=== PATIENT | male | born 1945 | race Caucasian/White ===

== ENCOUNTER 2020-05-16 08:29 | Outpatient (CLI) | payer MEDICARE, SELFPAY | END 2020-05-16 08:30 | disposition home or self-care (01) | LOC: ANHCOVIDVC 08:29 | PROVIDERS: PCP Internal Medicine | DX: Z23 Encounter for immunization (principal) | CPT/HCPCS: 0001A; 91300 ==

== ENCOUNTER 2020-06-06 08:32 | Outpatient (CLI) | payer MEDICARE, SELFPAY | END 2020-06-06 08:33 | disposition home or self-care (01) | LOC: ANHCOVIDVC 08:32 | PROVIDERS: PCP Internal Medicine | DX: Z23 Encounter for immunization (principal) | CPT/HCPCS: 0002A; 91300 ==

== ENCOUNTER 2020-07-19 14:27 | Emergency (ER) | payer MEDICARE, SELFPAY ==
--- NOTE | ~2020-07-19 | CT_ITS ---
EXAMINATION: CT lumbar spine wo [facility] EXAM DATE: 07/19/2020 16:52 INDICATION: Back pain for 3 days. No known recent injury. TECHNIQUE: Spiral CT of the lumbar spine was performed without contrast. Axial, coronal and sagittal images lumbar spine were reviewed. The dose-length product (DLP) for this examination was 1349.13 m Gy-cm. The exposure was tailored according to patient size (auto mA exposure control), and iterativ e reconstruction (ASIR) was used as additional dose reduction technique. There is no prior study for comparison. FINDINGS: There are no bony erosions identified. L4 and L5 laminectomies. Facets are fused L3-L5. The re is anterior and interbody fusion L5-S1. The vertebral bodies are aligned in the AP dimension. IVC filter infrarenal position. There are no acute fractures identified. Level by level evaluation: T12-L1: There is a minimal diffuse disc bulge. Facet arthropathy: Mild to moderate. Neural foraminal stenosis: Mild left. Central canal stenosis: Mild. L1-L2: There is mild to moderate disc osteophyte complex. Facet arthropathy: Moderate. Neural foraminal stenosis: Moderate bilateral. Central canal stenosis: Moderate to severe. L2-L3: There is a mild to moderate diffuse disc bulge. Facet arthropathy: Moderate to severe. Neural foraminal stenosis: Mild to moderate bilateral. Central canal stenosis: Moderate to severe. L3-L4: There is a mild to moderate diffuse disc bulge. Facet arthropathy: Fused. Neural foraminal stenosis: Mild bilateral. Central canal stenosis: Laminotomies, posterior decompression. L4-L5: There is a mild to moderate diffuse disc bulge. Facet arthropathy: Fused. Neural foraminal stenosis: Moderate bilateral. Central canal stenosis: Posterior decompression. L5-S1: There is moderate disc osteophyte complex. Facet arthropathy: Severe. Neural foraminal stenosis: Severe bilateral. Central canal stenosis: Mild to moderate, but posterior decompression. IMPRESSION: 1. L5-S1 fusion, severe bilateral neural foraminal stenosis. 2. Other surgical changes, and significant central canal stenosis at L1-2 and L2-3. 3. No acute findings. Reviewed, dictated and finalized at location A.
[2020-07-19 14:45] VITALS: BP 160/89; PULSE 65; RESP 16; TEMP 36; O2SAT 99
[2020-07-19 14:56] VITALS: BP 160/89; PULSE 65; RESP 18; TEMP 36.8; O2SAT 99
[2020-07-19] MEDS: HYDROcodone/acetaminophen (*CRX) 7.5-325 MG TABLET 1 TAB PO (15:40)
[2020-07-19] MEDS: LIDOCAINE 5% PATCH 1 PATCH TRANSDERM (15:47)
[2020-07-19 15:51] LABS: Add Urine Microscopic? YES; Appearance Urine Clear (Clear); Bilirubin Urine Negative (Negative); Blood Urine Negative (Negative); Color Urine Straw (Yellow); Glucose Urine UA 3+ mg/dL (Negative); Ketones Urine Negative (Negative); Leukocyte Esterase Ur Negative LEU/UL (Negative); Nitrate Urine Negative (Negative); Protein Urine Negative (Negative); RBC Urine 0-2 /hpf (0-2); Specific Grav Ur 1.018 (1.001-1.035); Urobilinogen Urine Negative mg/dL (<2.0); WBC Urine 0-3 /hpf
[2020-07-19] MEDS: diazePAM (*CRX) 5 MG TABLET PO (16:00)
--- NOTE | 2020-07-19 16:38 | ED.GENADULT ---
HPI - General Adult General Chief complaint: Back Pain/Injury Stated complaint: back pain Time Seen by Provider: 07/19/20 15:07 Source: patient, family, RN notes reviewed and old records reviewed Mode of arrival: ambulatory Limitations: no limitations History of Present Illness HPI narrative: Patient is a 75-year-old male who presents to emergency department for evaluation of low back pain across the lumbar region and left paraspinal region pain is constant and worse with activity or movement has been taking medications prescribed by primary care with minimal improvement patient with longstanding history of chronic back pain is scheduled to see neurosurgery in the near future. Patient denies injury or trauma illness or other complaints presents in no distress does not appear uncomfortable patient lives at home with his Related Data Home Medications Medication Instructions Recorded Confirmed aspirin 81 mg tablet,delayed 81 mg PO DAILY 01/19/19 07/13/20 release cyanocobalamin (vitamin B-12) 250 1,000 mcg PO DAILY 01/19/19 07/13/20 mcg tablet magnesium 250 mg tablet 250 mg PO DAILY tablet 01/19/19 07/13/20 acetaminophen 500 mg capsule 500 mg PO BID PRN cap 07/13/20 07/13/20 alpha lipoic acid 600 mg capsule 600 mg PO DAILY 07/13/20 07/13/20 Allergies Allergy/AdvReac Type Severity Reaction Status Date / Time adhesive tape Allergy Intermediate SKIN Verified 02/07/20 11:16 IRRITATION amoxicillin Allergy Intermediate Hives Verified 02/07/20 11:16 clavulanic acid Allergy Intermediate Hives / Verified 02/07/20 11:16 Red Face Penicillins Allergy Intermediate Hives Verified 02/07/20 11:16 morphine AdvReac Intermediate DIDN'T Verified 02/07/20 11:16 FEEL WELL Review of Systems Review of Systems: All systems reviewed & are unremarkable except as noted in HPI and below PMFSH Past Medical History Medical History Back pain Cholecystectomy planned Coronary arteriosclerosis in [place] artery Diabetes mellitus DVT (deep venous thrombosis) Hypertension Measles Mumps Peripheral neuropathy Vitamin D deficiency Surgical History Surgical History History of heart artery stent S/P cervical spinal fusion Family History Family History (Updated 08/29/17 @ 11:07 by DOCTOR UNKNOWN) Father Family history of congestive heart failure Other Diabetes mellitus Family history of elevated blood lipids Hypertension Social History Social History Smoking status: Heavy tobacco smoker Alcohol intake: never Exam Narrative: Exam Narrative: GENERAL: Well-appearing, obese, and in no acute distress. HEAD: Normocephalic, atraumatic. EYES: PERRLA and EOMI. ENT: Nares clear, no rhinorrhea or epistaxis. Mucous membranes moist. CHEST: Clear to auscultation. No respiratory distress. No wheezes rales or rhonchi HEART: Regular rate and rhythm. No murmur heard. EXTREMITIES: Normal range of motion. No edema. Tenderness across the lower lumbar region no rashes or deformities noted SKIN: Warm, dry, no rash. NEURO: No focal deficits. Alert and oriented x3. Normal speech and gait. Cranial nerves II through XII grossly intact PSYCH: Normal mood and affect. Course Course Emergency Course: Patient evaluated in the emergency department for low back pain which sounds chronic in nature will be evaluated by primary care and neurosurgery for this. Patient at this time was medicated in the emergency department will be sent home with medications for his pain patient agrees with this treatment plan he does not appear uncomfortable or distressed Vital Signs Vital signs: Vital Signs Temperature 96.8 F L 07/19/20 14:45 Pulse Rate 65 07/19/20 14:45 Respiratory Rate 16 07/19/20 14:45 Blood Pressure 160/89 H 07/19/20 14:45 Pulse Oximetry 99 07/19
[2020-07-19] MEDS: KETOROLAC (*BKC) 60 MG/2 ML VIAL 30 MG IM (18:07)
== END 2020-07-19 18:35 | disposition home or self-care (01) ==
PROVIDERS: Emergency Medicine Emergency Medical Services; Emergency Provider Emergency Medicine; PCP Internal Medicine
DX: M54.5 Low back pain (principal); I25.10 Atherosclerotic heart disease of native coronary artery without angina pectoris; E11.9 Type 2 diabetes mellitus without complications; Z79.82 Long term (current) use of aspirin
CPT/HCPCS: 72131; 81001; 96372; 99284; A9270; J1885

== ENCOUNTER 2021-04-14 12:18 | Outpatient (CLI) | payer MEDICARE, SELFPAY ==
--- NOTE | ~2021-04-14 | MR_ITS ---
EXAMINATION: MR lumbar spine wo [facility] EXAM DATE: 04/14/2021 13:21 INDICATION: M54.5 - Low back pain . TECHNIQUE: Multi-sequential, multiplanar MR images of the lumbar spine were obtained without contrast . Axial T2, axial T2 MERGE sequence. Sagittal T1, T2, T2 fat saturation images also obtained. Ther e is no prior study for comparison. FINDINGS: Minimal acute or subacute compressions at the superior endplates of L1 and L2, some bone m arrow edema. Mild chronic compression fracture of T12. There is L5-S1 anterior, interbody fusion. Mil d to moderate loss of the L3-4 and L4-5 disc height. L4 and L5 laminectomies. Laminotomies L2 and L3. The conus medullaris terminates at the L1-2 level and has normal signal intensity and morphology. T here is mild lumbar levoscoliosis. Paraspinal soft tissue is unremarkable. 2 cm left renal cyst. Level by level evaluation: T12-L1: There is a minimal diffuse disc bulge. Facet arthropathy: Mild to moderate bilateral. Neural foraminal stenosis: No stenosis. Central canal stenosis: No stenosis. L1-L2: There is a mild to moderate diffuse disc bulge. Facet arthropathy: Moderate. Neural foraminal stenosis: Moderate left, mild to moderate right. Central canal stenosis: Mild to moderate. L2-L3: There is a moderate diffuse disc bulge. Facet arthropathy: Moderate, partially fused. Neural foraminal stenosis: Mild to moderate right, mild left. Central canal stenosis: Mild. Probable prior left hemilaminotomy. L3-L4: There is a mild to moderate diffuse disc bulge, partially fused Facet arthropathy: Fused. Neural foraminal stenosis: Mild to moderate bilateral. Central canal stenosis: No stenosis. Laminotomies. L4-L5: Ybip-ty-laxxruge Facet arthropathy: Fused. Neural foraminal stenosis: Moderate bilateral. Central canal stenosis: No stenosis. Laminectomies. L5-S1: This level is fused, but with posterior disc osteophyte complex Facet arthropathy: Moderate to severe. Neural foraminal stenosis: Moderate to severe right bilateral, right greater than left. Central canal stenosis: Mild. Laminectomies.. IMPRESSION: 1. Subacute appearing minimal compression fractures L1 and L2. 2. Surgical changes, with the L5-S1 neural foramen most narrowed on exam. Reviewed, dictated and finalized at location G. 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
== END 2021-04-14 12:19 | disposition home or self-care (01) ==
PROVIDERS: PCP Internal Medicine; Visit Provider Internal Medicine
DX: M48.061 Spinal stenosis, lumbar region without neurogenic claudication (principal); G62.9 Polyneuropathy, unspecified; M54.50 Low back pain, unspecified; Z98.890 Other specified postprocedural states; M48.56XA Collapsed vertebra, not elsewhere classified, lumbar region, initial encounter for fracture
CPT/HCPCS: 72148

== ENCOUNTER 2021-05-22 12:44 | Outpatient (CLI) | payer MEDICARE, SELFPAY ==
--- NOTE | ~2021-05-22 | CT_ITS ---
EXAMINATION: CT lumbar spine wo con DATE: 05/22/2021 13:03 INDICATION: Low back pain. Lumbar stenosis with neurogenic claudication. TECHNIQUE: Computed tomography (CT) of the lumbar spine was performed without intravenous contrast. A utomated exposure control and iterative reconstruction technique were employed. The dose-length produ ct was 1590.15 mGy-cm. COMPARISON: CT lumbar spine 07/19/2020, MRI 04/14/2021 FINDINGS: There is a filter in the inferior vena cava. There is 7 degrees levocurvature of lumbar spi ne. There are changes of anterior fusion procedure at L5-S1 with interbody devices, bridging interbod y bone, and anterior plate and screws. Old pedicle screw tracks are noted from L3 to L5. Vertebral gildardo dy heights are normal. There are bridging endplate osteophytes from L2 to L5. The following disc leve ls are specifically discussed: L1-L2: The disc is bulging. There is severe bilateral facet joint osteoarthritis. There is moderate b ilateral neural foraminal stenosis. There is mild central canal stenosis. There is moderate stenosis of left lateral recess. L2-L3: The disc is bulging. There is severe bilateral facet joint osteoarthritis. There is moderate b ilateral neural foraminal stenosis. There is mild central canal stenosis. L3-L4: The disc is bulging. There is ankylosis of the facet joints with severe hypertrophy. There is moderate right and mild left neural foraminal stenosis. There is mild central canal stenosis with pos terior decompression. L4-L5: The disc is bulging. There is ankylosis of the facet joints with severe hypertrophy. There is moderate bilateral neural foraminal stenosis. There is mild central canal stenosis with posterior dec ompression. L5-S1: There is severe bilateral facet joint osteoarthritis. There is severe bilateral neural foramin al stenosis. There is mild central canal stenosis with posterior decompression. IMPRESSION: 1. Severe lumbar spondylosis, stable from 04/14/2021. 2. Anterior fusion procedure at L5-S1. Posterior fusion from L3 to L5. Reviewed, dictated and finalized at location A.
== END 2021-05-22 12:45 | disposition home or self-care (01) ==
LOC: ANHIMG 12:49
PROVIDERS: PCP Internal Medicine
DX: M54.50 Low back pain, unspecified (principal); M48.062 Spinal stenosis, lumbar region with neurogenic claudication; M47.816 Spondylosis without myelopathy or radiculopathy, lumbar region; Z98.1 Arthrodesis status
CPT/HCPCS: 72131

== ENCOUNTER 2021-07-30 09:33 | Outpatient (CLI) | payer MEDICARE, SELFPAY ==
--- NOTE | ~2021-07-30 | NM_ITS ---
EXAMINATION: NM bone scan limited area DATE: 07/30/2021 13:52 INDICATION: Low back pain TECHNIQUE: 26.9 mCi Tc-99m HDP was administered intravenously. Delayed whole-body scintigrams of the chest, and pelvis were obtained in the anterior and posterior projections along with left and right lateral scintigrams of the abdomen and pelvis. COMPARISON: Lumbar spine CT dated 05/22/2021 FINDINGS: Mild likely degenerative joint centered uptake at the bilateral sternoclavicular and acromioclavicula r joints. Foci of uptake along the right maxilla in typical location for dental disease and close inc reased uptake in the region of the left mastoid sinus/nasal cavity which could be related to sinus di sease. Photopenic defect along the posterior midline of the lower lumbar spine corresponding to the s ite of prior L4 and L5 laminectomies. Mild increased uptake along the anterior margin of the upper stalin mbar spine corresponding to bridging or nearly bridging osteophytes. No more intense bone uptake to s uggest recent fracture or more atypically located bone lesions to suggest metastatic disease. IMPRESSION: 1. No lesion suspicious for either recent fracture or metastatic disease. Reviewed, dictated and finalized at location B.
== END 2021-07-30 09:34 | disposition home or self-care (01) ==
PROVIDERS: PCP Internal Medicine; Visit Provider Internal Medicine
DX: M54.50 Low back pain, unspecified (principal); G89.29 Other chronic pain
CPT/HCPCS: 78300; A9561

== ENCOUNTER 2021-11-17 07:43 | Outpatient (CLI) | payer MEDICARE, SELFPAY ==
--- NOTE | ~2021-11-17 | MR_ITS ---
EXAMINATION: MR thoracic spine wo con DATE: 11/17/2021 08:31 INDICATION: Thoracic back pain. TECHNIQUE: Magnetic resonance imaging (MRI) of the thoracic spine was performed without intravenous c ontrast. COMPARISON: CT lumbar spine 05/23/2021 FINDINGS: There is 3 degrees dextrocurvature of thoracic spine. There is mild chronic anterior wedgin g of T6, T7, T11, and T12 vertebral bodies. There are Schmorl's nodes at multiple levels. There are c hanges of anterior fusion procedure in cervical spine. There is moderately decreased disc height at T 1-T2 and mildly decreased disc height at T2-T3 and T5-T6. There is multilevel facet joint osteoarthri tis, severe at many levels. There is mild neural foraminal stenosis at most levels bilaterally. On th e left, there is moderate neural foraminal stenosis at T2-T3. At T1-T2, the disc is bulging with mild central canal stenosis. At T2-T3, there is a left central extrusion with mild central canal stenosis . At T3-T4, there is a right central protrusion with mild central canal stenosis and ventral indentat ion of the spinal cord. At T4-T5, there is a central extrusion with mild central canal stenosis and v entral indentation of the spinal cord. At T5-T6, there is a right central extrusion with mild central canal stenosis and ventral indentation of the spinal cord. At T9-T10, there is a left central extrus ion with mild central canal canal stenosis. 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 IMPRESSION: 1. Moderate thoracic spondylosis. 2. 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 Reviewed, dictated and finalized at location A.
== END 2021-11-17 07:44 | disposition home or self-care (01) ==
PROVIDERS: PCP Internal Medicine; Visit Provider Nurse Practitioner Family
DX: M54.6 Pain in thoracic spine (principal); M47.814 Spondylosis without myelopathy or radiculopathy, thoracic region; G95.0 Syringomyelia and syringobulbia
CPT/HCPCS: 72146

== ENCOUNTER 2022-01-08 07:58 | Outpatient (CLI) | payer MEDICARE, SELFPAY ==
[2022-01-08 19:45] LABS: Hematocrit 49.9 % (42.0-52.0); Hemoglobin 16.1 g/dL (14.0-18.0); Mean Corpuscular HGB Conc 32.3 g/dl (32-36); Mean Corpuscular Hemoglobin 29.3 pg (26-34); Mean Corpuscular Volume 90.7 fl (80-100); Mean Platelet Volume 9.9 fl (7.4-10.4); Platelet Count Result 159 k/mm3 (150-375); Red Cell Distribution Width 14.2 % (11.5-14.5); White Blood Count 6.6 K/mm3 (4.5-10.0)
[2022-01-08 20:02] LABS: Creatinine Urine 131.3 mg/dL
[2022-01-08 20:07] LABS: MALB Creatinine Ratio 5.1 mg/g (0-30); Microalbumin Urine Random 6.7 mg/L (0-16.7)
[2022-01-08 20:07] LABS: Alanine Aminotransferase 53 U/L (6-50); Albumin Level 4.4 g/dL (3.5-5.1); Alkaline Phosphatase 87 U/L (38-126); Anion Gap 11 mmol/L (8-16); Aspartate Amino Transferase 42 U/L (17-59); Bilirubin,Total 1.5 mg/dL (0.2-1.3); Blood Urea Nitrogen 19 mg/dL (9-20); Calcium 8.7 mg/dL (8.4-10.2); Carbon Dioxide 24 mmol/L (22-30); Chloride 105 mmol/L (98-107); Cholesterol 130 mg/dL (0-200); Estimated Glomerular Filt Rate > 60; Glucose 112 mg/dL (65-110); HDL Direct 36 mg/dL; Potassium 3.9 mmol/L (3.4-5.0); Sodium 140 mmol/L (137-145); Triglycerides 331 mg/dL (<150)
[2022-01-08 20:14] LABS: Hemoglobin A1C 7.1 % (<5.7)
[2022-01-08 20:17] LABS: LDL Cholesterol Direct 48 mg/dL
[2022-01-08 20:37] LABS: Prostate Specific Antigen 0.5 ng/mL (< OR = 4.0)
== END 2022-01-08 07:59 | disposition home or self-care (01) ==
PROVIDERS: PCP Internal Medicine; Visit Provider Internal Medicine
DX: I25.10 Atherosclerotic heart disease of native coronary artery without angina pectoris (principal); E11.9 Type 2 diabetes mellitus without complications; Z12.5 Encounter for screening for malignant neoplasm of prostate
CPT/HCPCS: 36415; 80053; 80061; 82043; 83036; 84153; 85027; G0103

== ENCOUNTER 2022-06-11 09:05 | Outpatient (CLI) | payer MEDICARE, SELFPAY ==
[2022-06-11 19:53] LABS: Hematocrit 50.2 % (42.0-52.0); Hemoglobin 16.5 g/dL (14.0-18.0); Mean Corpuscular HGB Conc 32.9 g/dl (32-36); Mean Corpuscular Hemoglobin 28.8 pg (26-34); Mean Corpuscular Volume 87.8 fl (80-100); Mean Platelet Volume 9.9 fl (7.4-10.4); Platelet Count Result 179 k/mm3 (150-375); Red Blood Count 5.72 M/mm3 (4.6-6.20); Red Cell Distribution Width 13.8 % (11.5-14.5)
[2022-06-11 21:18] LABS: Alanine Aminotransferase 47 U/L (6-50); Albumin Level 4.4 g/dL (3.5-5.1); Alkaline Phosphatase 89 U/L (38-126); Anion Gap 9 mmol/L (8-16); Aspartate Amino Transferase 53 U/L (17-59); Bilirubin,Total 1.8 mg/dL (0.2-1.3); Blood Urea Nitrogen 17 mg/dL (9-20); Calcium 8.6 mg/dL (8.4-10.2); Carbon Dioxide 26 mmol/L (22-30); Chloride 105 mmol/L (98-107); Estimated Glomerular Filt Rate > 60; Glucose 132 mg/dL (65-110); Potassium 4.1 mmol/L (3.4-5.0); Sodium 140 mmol/L (137-145)
[2022-06-11 21:35] LABS: Hemoglobin A1C 7.2 % (<5.7)
== END 2022-06-11 09:06 | disposition home or self-care (01) ==
LOC: ANHGOSHLAB 09:06
PROVIDERS: PCP Internal Medicine; Visit Provider Nurse Practitioner
DX: I25.10 Atherosclerotic heart disease of native coronary artery without angina pectoris (principal); E11.9 Type 2 diabetes mellitus without complications; I10 Essential (primary) hypertension
CPT/HCPCS: 36415; 80053; 83036; 85027

== ENCOUNTER → 2022-09-30 10:02 | Outpatient (CLI) | payer MEDICARE, SELFPAY ==
--- NOTE | ~2022-09-30 | XR_ITS ---
XR knee LT min 4V DATE: 09/30/2022 10:26 INDICATION: Medial pain for 4 days TECHNIQUE: 4 views COMPARISON: None FINDINGS: There is tricompartment osteoarthritis, most prominent at the patellofemoral joint , mildly prominent at the medial and lateral compartments. There is distention of the suprapatellar bursa, consistent with joint effusion. No fracture or dislocation, periosteal reaction or bone destruction is detected. Prominent infrapatellar enthesopathy of patella. No radiopaque intraarticular loose body or chondrocalcinosis. IMPRESSION: Joint effusion Tricompartment osteoarthritis Reviewed, dictated and finalized at location B.
== END ==
PROVIDERS: PCP Internal Medicine; Visit Provider Internal Medicine
DX: M25.562 Pain in left knee (principal); M25.462 Effusion, left knee; M17.12 Unilateral primary osteoarthritis, left knee
CPT/HCPCS: 73564

== ENCOUNTER 2022-12-18 08:46 | Outpatient (CLI) | payer MEDICARE, SELFPAY ==
[2022-12-18 18:24] LABS: Hematocrit 50.4 % (42.0-52.0); Hemoglobin 16.6 g/dL (14.0-18.0); Mean Corpuscular HGB Conc 32.9 g/dl (32-36); Mean Corpuscular Hemoglobin 29.4 pg (26-34); Mean Corpuscular Volume 89.2 fl (80-100); Mean Platelet Volume 10.2 fl (7.4-10.4); Platelet Count Result 149 k/mm3 (150-375); Red Blood Count 5.65 M/mm3 (4.6-6.20); Red Cell Distribution Width 14.6 % (11.5-14.5); White Blood Count 6.9 K/mm3 (4.5-10.0)
[2022-12-18 19:54] LABS: Alanine Aminotransferase 42 U/L (6-50); Albumin Level 4.3 g/dL (3.5-5.1); Alkaline Phosphatase 80 U/L (38-126); Anion Gap 7 mmol/L (8-16); Aspartate Amino Transferase 39 U/L (17-59); Bilirubin,Total 1.8 mg/dL (0.2-1.3); Blood Urea Nitrogen 18 mg/dL (9-20); Calcium 9.2 mg/dL (8.4-10.2); Carbon Dioxide 29 mmol/L (22-30); Chloride 101 mmol/L (98-107); Estimated Glomerular Filt Rate > 60; Glucose 137 mg/dL (65-110); Potassium 4.2 mmol/L (3.4-5.0); Sodium 137 mmol/L (137-145)
[2022-12-18 19:59] LABS: Bilirubin Indirect 1.6 mg/dL (0-1.1); Bilirubin,Total 1.9 mg/dL (0.2-1.3)
[2022-12-18 21:48] LABS: Hemoglobin A1C 7.3 % (<5.7)
[2022-12-21 06:33] LABS: GGT 71 U/L (3-70)
[2022-12-23 00:20] LABS: Apolipoprotein B 70 mg/dL (<90)
== END 2022-12-18 08:47 | disposition home or self-care (01) ==
PROVIDERS: PCP Internal Medicine; Visit Provider Internal Medicine
DX: E11.9 Type 2 diabetes mellitus without complications (principal); I10 Essential (primary) hypertension; I25.10 Atherosclerotic heart disease of native coronary artery without angina pectoris; E80.6 Other disorders of bilirubin metabolism
CPT/HCPCS: 36415; 80053; 82172; 82247; 82248; 82977; 83036; 85027

== ENCOUNTER → 2023-02-03 13:19 | Outpatient (CLI) | payer MEDICARE, SELFPAY ==
--- NOTE | ~2023-02-03 | XR_ITS ---
XR chest 2V 02/03/2023 13:28 Indication: Cough for one month Procedure: 2 view chest Comparison: Comparison to multiple prior studies sequentially, with oldest reviewed study dated 12/09. Findings: Heart size normal. No focal air space disease, pulmonary edema, pleural effusion or suspect ed pneumothorax. Impression: 1: No acute cardiopulmonary disease. Reviewed, dictated and finalized at location B. CH MUSICIAN Impression: 1: No acute cardiopulmonary disease.
== END ==
PROVIDERS: PCP Internal Medicine; Visit Provider Internal Medicine
DX: R05.9 Cough, unspecified (principal)
CPT/HCPCS: 71046

== ENCOUNTER 2023-03-06 00:10 | Day surgery (SDC) | payer MEDICARE, SELFPAY ==
[2023-02-12 15:19] VITALS: BMI 32.4
--- NOTE | 2023-03-04 12:12 | SUR.PREOP ---
Patient called regarding upcoming procedure. Reviewed preop instructions, appointment times, and procedure prep.
[2023-03-06 07:00] VITALS: BP 156/84; PULSE 66; RESP 18; TEMP 36.4; O2SAT 97; BMI 31.8
[2023-03-06 07:11] LABS: Glucose Point of Care 126 mg/dl (65-105)
[2023-03-06] MEDS: LACTATED RINGERS 1,000 ML 150 ML IV CONT (07:20)
--- NOTE | 2023-03-06 07:26 | PM.HPGS ---
History of Present Illness History of Present Illness Consent: Risks, benefits, and alternatives have been discussed and questions answered. Patient agrees to proceed with procedure. Chief complaint: hx of colon polyps Narrative: Abdullahi Prado is a 77 year old male Presents for screening colonoscopy. Patient has a history of large colon polyp in the past. Patient reports that his current weight appetite and bowel movements are normal. Patient denies abdominal pain. He has had no bleeding. Family history noncontributory. Review of Systems Review of Systems: Review of systems noncontributory. 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 Lumbar compression fracture Measles Mumps Neural foraminal stenosis of lumbar spine Osteoarthritis of left knee Peripheral neuropathy Purposeful movement with painful stimulus Vitamin D deficiency Surgical History Surgical History History of heart artery stent Previous back surgery X6 S/P cervical spinal fusion Family History Family History Father Family history of congestive heart failure Other Diabetes mellitus Family history of elevated blood lipids Hypertension Social History Social History Smoking packs per day: 1 Smoking cigarettes per day: 20.0 Years smoked: 50 Smoking pack-years: 50.00 Smoking status: Current every day smoker Tobacco type: cigarettes Alcohol intake: never Substance use type: does not use Lack of Transportation: No Lack of Food: Never True Current Housing: I Have Housing Concerned About Future Housing: No Difficulty Paying Gas/Electric Bills: No Difficulty Paying for Meds: No Currently Unemployed: No Education: High School Diploma/GED Difficulty w/ Childcare or Family Care: No Living arrangements: with family Spiritual care concerns: No Meds Home Medications and Allergies Home Medications Medication Instructions Recorded Confirmed Type aspirin 81 mg tablet,delayed 81 mg PO DAILY 01/19/19 02/12/23 History release (Adult Aspirin Regimen) cyanocobalamin (vitamin B-12) 250 1,000 mcg PO DAILY 01/19/19 02/12/23 History mcg tablet magnesium 250 mg tablet 250 mg PO DAILY 01/19/19 02/12/23 History gabapentin 300 mg capsule 300 mg PO HS 01/15/21 02/12/23 History empagliflozin 25 mg tablet 12.5 mg PO DAILY 01/14/22 02/12/23 History metformin 500 mg tablet 500 mg PO BID #180 tabs 09/04/22 02/12/23 Rx albuterol sulfate 90 mcg/actuation 2 inh inhalation Q6H PRN shortness 02/03/23 02/12/23 Rx aerosol inhaler of breath or wheezing/cough #6.7 grams losartan 25 mg tablet 25 mg PO DAILY #30 tabs 02/03/23 03/06/23 Rx atorvastatin 10 mg tablet 10 mg PO DAILY 02/12/23 02/12/23 History carvedilol 12.5 mg tablet 12.5 mg PO BID 02/12/23 03/06/23 History sodium,potassium,mag sulfates 17.5 See Rx Instructions .Route 02/12/23 Rx gram-3.13 gram-1.6 gram oral soln .COMPLEX #354 mL (Suprep Bowel Prep Kit) Allergies Allergy/AdvReac Type Severity Reaction Status Date / Time adhesive tape Allergy Intermediate SKIN Verified 03/06/23 06:59 IRRITATION amoxicillin Allergy Intermediate Hives Verified 03/06/23 06:59 clavulanic acid Allergy Intermediate Hives / Verified 03/06/23 06:59 Red Face Penicillins Allergy Intermediate Hives Verified 03/06/23 06:59 morphine AdvReac Intermediate DIDN'T Verified 03/06/23 06:59 FEEL WELL Vital Signs Vital Signs - 24 hr 03/06/23 07:00 Temperature 97.5 F L Pulse Rate 6
--- NOTE | 2023-03-06 08:00 | WPDANESEPPF ---
Anes - Initial Pre Proc Eval Procedure: Operation Date: 03/06/23 08:00 Proposed Procedures p Colonoscopy - Teddy Coker MD Date/Time: 03/06/23 08:00 Surgeon: Teddy Coker MD Pre Op Diagnosis: hx of colon polyps Patient Data Age: 77 Gender: M Height: 1.85 m Weight: 109.3 kg Last Vital Signs Temp 97.5 F L 03/06/23 07:00 Pulse 66 03/06/23 07:00 Resp 18 03/06/23 07:00 BP 156/84 H 03/06/23 07:00 Pulse Ox 97 03/06/23 07:00 O2 Del Method Room Air 03/06/23 07:00 Allergies Allergy/AdvReac Type Severity Reaction Status Date / Time adhesive tape Allergy Intermediate SKIN Verified 03/06/23 06:59 IRRITATION amoxicillin Allergy Intermediate Hives Verified 03/06/23 06:59 clavulanic acid Allergy Intermediate Hives / Verified 03/06/23 06:59 Red Face Penicillins Allergy Intermediate Hives Verified 03/06/23 06:59 morphine AdvReac Intermediate DIDN'T Verified 03/06/23 06:59 FEEL WELL Home Medications Medication Instructions Recorded Confirmed Type aspirin 81 mg tablet,delayed 81 mg PO DAILY 01/19/19 02/12/23 History release (Adult Aspirin Regimen) cyanocobalamin (vitamin B-12) 250 1,000 mcg PO DAILY 01/19/19 02/12/23 History mcg tablet magnesium 250 mg tablet 250 mg PO DAILY 01/19/19 02/12/23 History gabapentin 300 mg capsule 300 mg PO HS 01/15/21 02/12/23 History empagliflozin 25 mg tablet 12.5 mg PO DAILY 01/14/22 02/12/23 History metformin 500 mg tablet 500 mg PO BID #180 tabs 09/04/22 02/12/23 Rx albuterol sulfate 90 mcg/actuation 2 inh inhalation Q6H PRN shortness 02/03/23 02/12/23 Rx aerosol inhaler of breath or wheezing/cough #6.7 grams losartan 25 mg tablet 25 mg PO DAILY #30 tabs 02/03/23 03/06/23 Rx atorvastatin 10 mg tablet 10 mg PO DAILY 02/12/23 02/12/23 History carvedilol 12.5 mg tablet 12.5 mg PO BID 02/12/23 03/06/23 History sodium,potassium,mag sulfates 17.5 See Rx Instructions .Route 02/12/23 Rx gram-3.13 gram-1.6 gram oral soln .COMPLEX #354 mL (Suprep Bowel Prep Kit) Laboratory Tests 03/06/23 07:07 POC Capillary Glucose 126 H mg/dl (65-105) Patient hx anesthesia problems: none Family hx anesthesia problems: none Results Review: All pre-operative results and documents have been reviewed as part of the pre-operative evaluation. 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 Lumbar compression fracture Measles Mumps Neural foraminal stenosis of lumbar spine Osteoarthritis of left knee Peripheral neuropathy Purposeful movement with painful stimulus Vitamin D deficiency Surgical History Surgical History History of heart artery stent Previous back surgery X6 S/P cervical spinal fusion Family History Family History Father Family history of congestive heart failure Other Diabetes mellitus Family history of elevated blood lipids Hypertension Social History Social History Smoking packs per day: 1 Smoking cigarettes per day: 20.0 Years smoked: 50 Smoking pack-years: 50.00 Smoking status: Current every day smoker Tobacco type: cigarettes Alcohol intake: never Substance use type: does not use Lack of Transportation: No Lack of Food: Never True Current Housing: I Have Housing Concerned About Future Housing: No Difficulty Paying Gas/Electric Bills: No Difficulty Paying for Meds: No Currently Unemployed: No Education: High School Diploma/GED Difficulty w/ Childcare or Family Care: No Living arrangemen
[2023-03-06 08:15] VITALS: BP 113/66; PULSE 60; RESP 18; O2SAT 98
[2023-03-06 08:25] VITALS: BP 109/61; PULSE 62; RESP 18; O2SAT 98
[2023-03-06 08:35] VITALS: BP 126/82; PULSE 58; RESP 18; O2SAT 100
== END 2023-03-06 08:43 | disposition home or self-care (01) ==
PROVIDERS: PCP Internal Medicine; Visit Provider Internal Medicine Gastroenterology
PROC: 0DJD8ZZ Inspection of Lower Intestinal Tract, Via Natural or Artificial Opening Endoscopic (ICD-10-PCS; CPT 45378; principal; 2023-03-06 08:00)
DX: Z12.11 Encounter for screening for malignant neoplasm of colon (principal); K64.8 Other hemorrhoids; I10 Essential (primary) hypertension; E55.9 Vitamin D deficiency, unspecified; E11.9 Type 2 diabetes mellitus without complications; M54.9 Dorsalgia, unspecified; G89.29 Other chronic pain; E80.7 Disorder of bilirubin metabolism, unspecified; I25.10 Atherosclerotic heart disease of native coronary artery without angina pectoris; E66.9 Obesity, unspecified; Z68.31 Body mass index [BMI] 31.0-31.9, adult; F17.210 Nicotine dependence, cigarettes, uncomplicated; Z79.82 Long term (current) use of aspirin; Z79.84 Long term (current) use of oral hypoglycemic drugs; Z79.51 Long term (current) use of inhaled steroids; Z98.0 Intestinal bypass and anastomosis status; Z86.010 Personal history of colon polyps; Z86.718 Personal history of other venous thrombosis and embolism; Z82.49 Family history of ischemic heart disease and other diseases of the circulatory system
CPT/HCPCS: G0105; 82948; J2704; J7120

== ENCOUNTER 2023-06-23 08:41 | Outpatient (CLI) | payer MEDICARE, SELFPAY ==
[2023-06-23 11:13] LABS: Alanine Aminotransferase 37 U/L (6-50); Albumin Level 4.4 g/dL (3.5-5.1); Alkaline Phosphatase 93 U/L (38-126); Anion Gap 8 mmol/L (4-12); Aspartate Amino Transferase 45 U/L (17-59); Bilirubin,Total 1.8 mg/dL (0.2-1.3); Blood Urea Nitrogen 19 mg/dL (9-20); Calcium 9.1 mg/dL (8.4-10.2); Carbon Dioxide 24 mmol/L (22-30); Chloride 106 mmol/L (98-107); Estimated Glomerular Filt Rate > 60; Glucose 151 mg/dL (65-110); Potassium 3.9 mmol/L (3.4-5.0); Sodium 138 mmol/L (137-145)
[2023-06-23 11:39] LABS: Prostate Specific Antigen 0.6 ng/mL (< OR = 4.0)
[2023-06-23 11:55] LABS: Creatinine Urine 95.8 mg/dL
[2023-06-23 11:57] LABS: Hemoglobin A1C 8.2 % (<5.7)
[2023-06-23 11:59] LABS: Microalbumin Urine Random < 6.0 mg/L (0-16.7)
[2023-06-23 12:00] LABS: MALB Creatinine Ratio < 6.3 mg/g (0-30)
[2023-06-23 12:03] LABS: Hematocrit 49.6 % (42.0-52.0); Hemoglobin 16.1 g/dL (14.0-18.0); Mean Corpuscular HGB Conc 32.5 g/dl (32-36); Mean Corpuscular Hemoglobin 28.3 pg (26-34); Mean Corpuscular Volume 87.3 fl (80-100); Mean Platelet Volume 9.8 fl (7.4-10.4); Platelet Count Result 188 k/mm3 (150-375); Red Blood Count 5.68 M/mm3 (4.6-6.20); White Blood Count 6.5 K/mm3 (4.5-10.0)
== END 2023-06-23 08:42 | disposition home or self-care (01) ==
PROVIDERS: PCP Internal Medicine; Visit Provider Internal Medicine
DX: Z12.5 Encounter for screening for malignant neoplasm of prostate (principal); E11.9 Type 2 diabetes mellitus without complications; G62.9 Polyneuropathy, unspecified; I10 Essential (primary) hypertension; I25.10 Atherosclerotic heart disease of native coronary artery without angina pectoris
CPT/HCPCS: 36415; 80053; 82043; 83036; 84153; 85027; G0103

== ENCOUNTER 2023-09-25 08:52 | Outpatient (CLI) | payer MEDICARE, SELFPAY ==
[2023-09-25 22:07] LABS: Hemoglobin A1C 7.8 % (<5.7)
== END 2023-09-25 08:53 | disposition home or self-care (01) ==
LOC: ANHGOSHLAB 08:53
PROVIDERS: PCP Internal Medicine; Visit Provider Internal Medicine
DX: E11.9 Type 2 diabetes mellitus without complications (principal)
CPT/HCPCS: 36415; 83036

== ENCOUNTER 2023-11-13 09:40 | Outpatient (CLI) | payer MEDICARE, SELFPAY ==
[2023-11-13 14:32] LABS: Erythrocyte Sedimentation Rate 6 mm/hr (0-20)
[2023-11-13 14:48] LABS: Rheumatoid Factor < 12.0 IU/ML (<12)
[2023-11-13 14:55] LABS: Alanine Aminotransferase 28 U/L (6-50); Albumin Level 4.4 g/dL (3.5-5.1); Alkaline Phosphatase 93 U/L (38-126); Aspartate Amino Transferase 47 U/L (17-59); Bilirubin Indirect 1.3 mg/dL (0-1.1); Bilirubin,Total 1.7 mg/dL (0.2-1.3); CRP 1.2 mg/dL (<1.0); Creatine Kinase 172 U/L (55-170)
[2023-11-13 19:06] LABS: Hepatitis C Virus Antibody Negative (Negative)
[2023-11-18 11:35] LABS: Anti Nuclear Antibody Pattern Nuclear, Speckled; Anti Nuclear Antibody Titer 1:40 titer
== END 2023-11-13 09:41 | disposition home or self-care (01) ==
LOC: ANHGOSHLAB 09:42
PROVIDERS: PCP Internal Medicine; Visit Provider Internal Medicine
DX: M26.69 Other specified disorders of temporomandibular joint (principal); E80.6 Other disorders of bilirubin metabolism; E11.9 Type 2 diabetes mellitus without complications
CPT/HCPCS: 36415; 80076; 82550; 82728; 84443; 85652; 86038; 86039; 86140; 86430; 86803

== ENCOUNTER 2023-12-25 14:37 | Outpatient (CLI) | payer MEDICARE, SELFPAY ==
--- NOTE | ~2023-12-25 | XR_ITS ---
EXAMINATION: XR cervical spine 4-5V DATE: 12/25/2023 14:54 INDICATION: Neck pain. TECHNIQUE: 7 views of cervical spine were obtained. COMPARISON: None. FINDINGS: Bone alignment is normal. There are changes of anterior fusion procedure from C5 to C7 with anterior plate and screws. There are hemilaminectomies on the left from C4 to C7 with instrumentatio n. There is mildly decreased disc height at C4-C5. There is multilevel mild facet joint osteoarthriti s. There is multilevel mild neural foraminal stenosis bilaterally. There is mild central canal stenos is at C2-C3 and C3-C4. No prevertebral soft tissue swelling. IMPRESSION: 1. Mild cervical spondylosis. 2. Anterior fusion procedure from C5 to C7. Reviewed, dictated and finalized at location A.
== END 2023-12-25 14:38 | disposition home or self-care (01) ==
LOC: GOSHIMG 14:38
PROVIDERS: PCP Internal Medicine; Visit Provider Nurse Practitioner
DX: M43.02 Spondylolysis, cervical region (principal); Z98.1 Arthrodesis status
CPT/HCPCS: 72050

== ENCOUNTER 2023-12-30 08:11 | Outpatient (CLI) | payer MEDICARE, SELFPAY ==
[2023-12-30 16:03] LABS: Hemoglobin A1C 7.7 % (<5.7)
== END 2023-12-30 08:12 | disposition home or self-care (01) ==
PROVIDERS: PCP Internal Medicine; Visit Provider Nurse Practitioner
DX: E11.40 Type 2 diabetes mellitus with diabetic neuropathy, unspecified (principal)
CPT/HCPCS: 36415; 83036

== ENCOUNTER 2024-01-05 09:59 | Outpatient (CLI) | payer MEDICARE, SELFPAY ==
--- NOTE | ~2024-01-05 | XR_ITS ---
Left wrist Technique: PA, oblique, lateral, and ulnar deviation views were obtained. Clinical History: Pain Findings: No acute fracture or dislocation is seen. Osseous alignment is anatomic. There is mild to m oderate degenerative change of the first CMC joint. Soft tissues are unremarkable. Impression: Degenerative change, as above. Reviewed, dictated and finalized at location M. Impression: Degenerative change, as above.
== END 2024-01-05 10:00 | disposition home or self-care (01) ==
PROVIDERS: PCP Internal Medicine; Visit Provider Internal Medicine
DX: M18.12 Unilateral primary osteoarthritis of first carpometacarpal joint, left hand (principal)
CPT/HCPCS: 73110

== ENCOUNTER 2024-01-05 13:55 | Outpatient (CLI) | payer MEDICARE, SELFPAY ==
--- NOTE | ~2024-01-05 | XR_ITS ---
Right Shoulder Technique: AP and scapular Y views were obtained. Clinical History: Pain Findings: No fracture or dislocation is seen. Osseous alignment is anatomic. The glenohumeral joint d emonstrate mild degenerative change. There is moderate to advanced AC joint degenerative change. Prio r rotator cuff repair surgery evidenced noted, with suture anchor at the humeral head. Soft tissues a re unremarkable. Impression: Degenerative changes, as above. Prior rotator cuff repair surgery. Reviewed, dictated and finalized at location M. Impression: Degenerative changes, as above. Prior rotator cuff repair surgery.
--- NOTE | ~2024-01-05 | XR_ITS ---
Left Shoulder Technique: AP and scapular Y views were obtained. Clinical History: Pain Findings: No fracture or dislocation is seen. Osseous alignment is anatomic. The glenohumeral joint d emonstrates mild degenerative change. There is moderate to advanced AC joint degenerative change.. So ft tissues are unremarkable. Impression: Degenerative changes, as above. Reviewed, dictated and finalized at location . Impression: Degenerative changes, as above.
== END 2024-01-05 13:56 | disposition home or self-care (01) ==
LOC: MICIMG 13:56
PROVIDERS: PCP Internal Medicine; Visit Provider Nurse Practitioner Family
DX: M19.011 Primary osteoarthritis, right shoulder (principal); Z98.890 Other specified postprocedural states; M19.012 Primary osteoarthritis, left shoulder
CPT/HCPCS: 73030

== ENCOUNTER 2024-03-22 09:30 | Outpatient (CLI) | payer MEDICARE, SELFPAY ==
[2024-03-22 13:39] LABS: Basophils Absolute Auto 0.1 K/mm3 (0.0-0.1); Basophils Percent Auto 0.9 % (0.2-1.2); Eosinophils Absolute Auto 0.1 K/mm3 (0-0.3); Eosinophils Percent Auto 1.9 % (0-4.4); Hematocrit 48.2 % (42.0-52.0); Hemoglobin 15.3 g/dL (14.0-18.0); Immature Granulocyte Absolute 0.04 K/mm3 (0.00-0.031); Immature Granulocyte Percent A 0.6 % (0-0.5); Lymphocytes Absolute Auto 1.42 K/mm3 (0.9-3.2); Lymphocytes Percent Auto 20.4 % (18.3-44.2); Mean Corpuscular HGB Conc 31.7 g/dl (32-36); Mean Corpuscular Hemoglobin 26.7 pg (26-34); Mean Corpuscular Volume 84.1 fl (80-100); Mean Platelet Volume 9.1 fl (7.4-10.4); Monocytes Absolute Auto 0.7 K/mm3 (0.1-0.6); Monocytes Percent Auto 9.3 % (2.6-8.5); Neutrophils Absolute Auto 4.7 K/mm3 (1.3-6.7); Neutrophils Percent Auto 66.9 % (45.5-73.1); Platelet Count Result 261 k/mm3 (150-375); Red Blood Count 5.73 M/mm3 (4.6-6.20); Red Cell Distribution Width 15.9 % (11.5-14.5)
[2024-03-22 14:40] LABS: Anion Gap 9 mmol/L (4-12); Blood Urea Nitrogen 14 mg/dL (9-20); Calcium 8.9 mg/dL (8.4-10.2); Carbon Dioxide 25 mmol/L (22-30); Chloride 103 mmol/L (98-107); Cholesterol 132 mg/dL (0-200); Estimated Glomerular Filt Rate > 60; Glucose 143 mg/dL (65-110); HDL Direct 37 mg/dL; Potassium 4.1 mmol/L (3.4-5.0); Sodium 137 mmol/L (137-145); Triglycerides 152 mg/dL (<150)
[2024-03-22 14:50] LABS: LDL Cholesterol Direct 57 mg/dL
[2024-03-22 15:48] LABS: Hemoglobin A1C 7.6 % (<5.7)
== END 2024-03-22 09:31 | disposition home or self-care (01) ==
LOC: ANHGOSHLAB 09:32
PROVIDERS: PCP Internal Medicine; Visit Provider Internal Medicine
DX: I25.10 Atherosclerotic heart disease of native coronary artery without angina pectoris (principal); E11.9 Type 2 diabetes mellitus without complications; I10 Essential (primary) hypertension; G62.9 Polyneuropathy, unspecified
CPT/HCPCS: 36415; 80048; 80061; 82172; 83036; 85025

== ENCOUNTER 2024-04-21 08:19 | Emergency (ER) | payer MEDICARE, SELFPAY ==
[2024-04-21 08:45] VITALS: BP 116/75; PULSE 78; RESP 16; TEMP 35.9; O2SAT 96
--- NOTE | 2024-04-21 08:49 | ED.URI ---
HPI - URI/Sore Throat General Chief Complaint: Upper Respiratory Infection Stated Complaint: Flu Symptoms Time Seen by Provider: 04/21/24 08:49 Source: patient and RN notes reviewed Mode of arrival: ambulatory Limitations: no limitations History of Present Illness HPI Narrative: 78-year-old male with history of diabetes presented for complaint of coughing, headache, body aches, sinus pressure/congestion, fever/chills. Onset 3 days. Denies sob, wheezing, n/v/d. Patient is a daily smoker. Took Mucinex for symptoms. MD elicited complaint: cough Related Data Home Medications ?Medication ?Instructions ?Recorded ?Confirmed ?Last Taken ?Type aspirin 81 mg tablet,delayed 81 mg PO DAILY 01/19/19 03/29/24 Unknown History release (Adult Aspirin Regimen) cyanocobalamin (vitamin B-12) 250 1,000 mcg PO DAILY 01/19/19 03/29/24 Unknown History mcg tablet magnesium 250 mg tablet 250 mg PO DAILY 01/19/19 03/29/24 Unknown History empagliflozin 25 mg tablet 12.5 mg PO DAILY 01/14/22 03/29/24 Unknown History naproxen sodium 220 mg tablet 220 mg PO BID PRN 06/30/23 03/29/24 Unknown History mecobalamin (vitamin B12) 1,000 1,000 mcg PO DAILY 11/13/23 03/29/24 Unknown History mcg chewable tablet gabapentin 300 mg capsule 300 mg PO DAILY 12/09/23 03/29/24 Unknown History Allergies Allergy/AdvReac Type Severity Reaction Status Date / Time adhesive tape Allergy Intermediate SKIN Verified 04/21/24 08:51 IRRITATION amoxicillin Allergy Intermediate Hives Verified 04/21/24 08:51 clavulanic acid Allergy Intermediate Hives / Verified 04/21/24 08:51 Red Face Penicillins Allergy Intermediate Hives Verified 04/21/24 08:51 morphine AdvReac Intermediate DIDN'T Verified 04/21/24 08:51 FEEL WELL Review of Systems Review of Systems: Per HPI [facility] Past Medical History Medical History Bilateral tinnitus Diabetes mellitus with diabetic neuropathy Osteoarthritis of left knee Purposeful movement with painful stimulus Hyperbilirubinemia 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 opiate use Lumbar compression fracture Neural foraminal stenosis of lumbar spine Chronic low back pain Peripheral neuropathy Coronary arteriosclerosis in pok[place] artery Mumps Measles Back pain Cholecystectomy planned DVT (deep venous thrombosis) Hypertension Diabetes mellitus Vitamin D deficiency Surgical History Surgical History Previous back surgery X6 S/P cervical spinal fusion History of heart artery stent Family History Family History Father Family history of congestive heart failure Other Diabetes mellitus Family history of elevated blood lipids Hypertension Social History Social History Smoking packs per day: 1 Smoking cigarettes per day: 20.0 Years smoked: 50 Smoking pack-years: 50.00 Smoking status: Current every day smoker Tobacco type: cigarettes Alcohol intake: never Substance use type: does not use Do You Feel Safe in your Home?: Yes Lack of Transportation: No Lack of Food: Never True Current Housing: I Have Housing Concerned About Future Housing: No Difficulty Paying Gas/Electric Bills: No Difficulty Paying for Meds: No Currently Unemployed: No Education: High School Diploma/GED Difficulty w/ Childcare or Family Care: No Living arrangements: with family Spiritual care concerns: No Exam Narrative: GENERAL: mildly Ill-appearing, nontoxic no acute distress. EYES: PERRLA, conjunctivae clear ENT: Mucous membranes moist. TM pearly jang with dull light reflex bilaterally; no tragal tenderness. no drooling, no hoarseness, no trismus, uvula midline. No tripod positioning, muffled voice, soft palate or pharyngeal wall bulging NECK: Supple. No lymphadenopathy CHEST: Lung sounds diminished, breath sounds equal. No wheezing, rhonchi, rales, or stridor. No respiratory distress, speaks in full sentences. HEART: Regular rate and rhythm. SKIN: Warm, dry. NEURO: Alert and oriented x3. PSYCH: Normal mood and affect Course Course Emergency Course: Patient is aware of diagnosis, understands and agrees to treatment plan. Anticipatory guidance given. Patient agrees to follow-up as directed and is aware of reasons to seek care at the emergency department. Portions of this record may have been created with voice recognition software Level of Care: Express Care Visit Vital Signs Vital signs: Vital Signs Temperature 96.7 F L 04/21/24 08:45 Pulse Rate 78 04/21/24 08:45 Respiratory Rate 16 04/21/24 08:45 Blood Pressure 116/75 04/21/24 08:45 Pulse Oximetry 96 04/21/24 08:45 Temperature 96.7 F L 04/21/24 08:45 Pulse Rate 78 04/21/24 08:45 Respiratory Rate 16 04/21/24 08:45 Blood Pressure 116/75 04/21/24 08:45 Pulse Oximetry 96 04/21/24 08:45 reviewed MDM - URI/Sore Throat MDM Narrative Medical decision making narrative: POS flu. Discussed physical exam findings. Advised supportive measures and signs/symptoms to go to the ER. Pt is appropriate for outpt treatment and f/u. Differential Diagnosis Differential diagnosis: Likely upper respiratory infection, sinusitis and viral infection Lab Data Labs: Lab Results 04/21/24 Range/Units 09:02 POC Influenza A Ag Positive (Negative) POC Influenza B Ag Negative (Negative) POC SARS CoV-2 Ag Negative (Negative) Discharge Plan Discharge Clinical Impression: Influenza Patient Disposition: Home, Self-Care Condition: Stable Instructions: Influenza (ED) Additional Instructions: Influenza positive You should avoid crowds until you are fever free for 24 hours without the use of fever reducing medications, or the symptoms are improved Rest. Drink plenty of fluids. Tylenol 1000mg every 8 hours as needed for pain/fever Flonase spray and Zyrtec (or Claritin/Ida) for sinus pressure/congestion over the counter Cough syrup may cause drowsiness; avoid driving or take it at night time. Follow up with your primary care provider as needed Go to the ER for worsening symptoms or concerns Patient Language: Upper Sorbian Prescriptions: New prednisone 20 mg tablet 40 mg PO DAILY 4 Days Qty: 8 0RF No Action empagliflozin 25 mg tablet 12.5 mg PO DAILY albuterol sulfate 90 mcg/actuation HFA aerosol inhaler 2 inh inhalation Q6H PRN (Reason: shortness of breath or wheezing/cough) Qty: 6.7 1RF aspirin [Adult Aspirin Regimen] 81 mg tablet,delayed release (DR/EC) 81 mg PO DAILY magnesium 250 mg tablet 250 mg PO DAILY cyanocobalamin (vitamin B-12) 250 mcg tablet 1,000 mcg PO DAILY naproxen sodium 220 mg tablet 220 mg PO BID PRN mecobalamin (vitamin B12) 1,000 mcg tablet,chewable 1,000 mcg PO DAILY gabapentin 300 mg capsule 300 mg PO DAILY losartan 25 mg tablet 25 mg PO DAILY Qty: 90 1RF atorvastatin 10 mg tablet 10 mg PO DAILY Qty: 90 1RF Rx Instructions: TAKE 1 TABLET BY MOUTH EVERY DAY metformin 500 mg tablet 500 mg PO BID Qty: 180 1RF carvedilol 12.5 mg tablet 12.5 mg PO BID Qty: 180 1RF Rx Instructions: TAKE 1 TABLET BY MOUTH TWICE A DAY Follow-up/Referrals: Lg Urban DO [Primary Care Provider] - Time of Disposition: 09:27
[2024-04-21 09:04] LABS: EDCOVIDSCREEN Negative (Negative); EDINFLUASCREEN Positive (Negative); EDINFLUBSCREEN Negative (Negative)
== END 2024-04-21 09:28 | disposition home or self-care (01) ==
PROVIDERS: Emergency Provider Nurse Practitioner Family; PCP Internal Medicine
DX: J10.1 Influenza due to other identified influenza virus with other respiratory manifestations (principal); Z20.822 Contact with and (suspected) exposure to COVID-19; F17.210 Nicotine dependence, cigarettes, uncomplicated; E11.42 Type 2 diabetes mellitus with diabetic polyneuropathy; M48.061 Spinal stenosis, lumbar region without neurogenic claudication; I25.10 Atherosclerotic heart disease of native coronary artery without angina pectoris; I10 Essential (primary) hypertension; M17.12 Unilateral primary osteoarthritis, left knee; Z95.5 Presence of coronary angioplasty implant and graft; Z86.718 Personal history of other venous thrombosis and embolism; Z79.82 Long term (current) use of aspirin
CPT/HCPCS: 87426; 87804; 99213; G0463

== ENCOUNTER 2024-09-27 08:00 | Outpatient (CLI) | payer MEDICARE, SELFPAY ==
--- OUTSIDE RECORDS SUMMARY | 2024-09-27 08:03 | XMS_ITS | Clinical Summary ---
Author Organization [facility] Address [address] [place] [address] Phone Care Team Providers Care Silvering Applicator Name Role Phone [facility], External Provider Primary Care Provider U navailable Allergies Active Allergy Reactions Criticality Noted Date Comments Adhesive Other (See Comments) 06/29/2012 Skin peels off Medications lisinopril (PRINIVIL) 10 mg Oral tablet Take 10 mg by mouth daily. Active atorvastatin (LIPITOR) 10 mg Oral tablet Take 10 mg by mouth daily. Active clopidogrel (PLAVIX) 75 mg Oral Tab Take 75 mg by mouth daily. Active metFORMIN (GLUCOPHAGE) 1,000 mg Oral tablet Take 1,000 mg by mouth 2 times daily with meals. Active carvedilol (COREG) 12.5 mg Oral tablet Take 12.5 mg by mouth 2 times daily with meals. Active GLUCOSAMINE HCL/CHONDR BLAIR A NA (OSTEO BI-FLEX ORAL) Take by mouth. Active magnesium oxide 140 mg Oral Cap Take 140 mg by mouth daily. Active diazepam (VALIUM) 5 mg Oral tablet Take 1 Tab by mouth every 6 hours as needed for Spasm. 90 Tab 0 06/30/2012 Active HYDROcodone-acet aminophen (NORCO) 5-325 mg Oral tablet Take 1-2 Tabs by mouth every 4 hours as needed for Pain. 90 Tab 0 06/30/2012 Active ondansetron (ZOFRAN ODT) [address] 1 Tab under tongue every 6 hours as needed for Nausea/Emes is. 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 Gender Identity Not on file Sexual Orientation Not on file Occupation Industry Job Start Date Job End Date Not on file Not on file Not on file Not on file Last Filed Vital Signs Vital Sign Reading Time Taken Comments Blood Pressure 106/62 06/30/2012 7:19 AM CDT Pulse 84 06/30/2012 7:19 AM CDT Temperature 36.6 C (97.8 F) 06/30/2012 7:19 AM CDT Respiratory Rate 16 06/30/2012 7:19 AM CDT Oxygen Saturation 95% 06/30/2012 7:19 AM CDT Inhaled Oxygen Concentration - - Weight 126.9 kg (279 lb 12.8 oz) 06/29/2012 5:38 AM CDT Height 185.4 cm (6' 1) 06/19/2012 10:2 4 AM CDT Body Mass Index 36.92 06/19/2012 10:24 AM CDT Plan of Treatment Health Maintenance Due Date Last Done Comments DTAP/TDAP/TD VACCINES (1 - Tdap) 1966 PNEUMOCOCCAL VACCINE 50+ YEARS (1 of 2 - PCV) 04/30/18 67 ZOSTER VACCINE (1 of 2) 1997 RSV VACCINE (60+ or ) (1 - 1-dose 75+ series) 2022 INFLUENZA VACCINE (#1) 2024 Medical Devices Implanted Type Area Black Jack Dealer Device Identifier Shelf Expiration Date Model / Serial / Lot Spacer Odl Parallel 8ml [id number] - [id number] Implanted:Qt y: 1 on 06/29/2012 by Dakota Vieira MD at [facility] Bone N/A: Spine Cervical Posterior MUSCULOSKELETAL TRANSPLANT FOU 05/01/2015 [id number] / [id number] / Description:C7 Spacer Odl Parallel 8ml [id number] - [id number] Implanted:Qt y: 1 on 06/29/2012 by Dakota Vieira MD at [facility] Bone N/A: Spine Cervical Posterior MUSCULOSKELETAL TRANSPLANT FOU 05/01/2015 / [id number] / Description:C6 Spacer Odl Parallel 8ml [id number] - [id number] Implanted:Qt y: 1 on 06/29/2012 by Dakota Vieira MD at [facility] Bone N/A: Spine Cervical Posterior MUSCULOSKELETAL TRANSPLANT FOU 2015 [id number] / [id number] / Description:C5 Mtf Odl Spacer 8mm Angled Implanted:Qt y: 1 on 06/29/2012 by Dakota Vieira MD at [facility] Bone N/A: Spine Cervical Posterior MUSCULOSKELETAL TRANSPLANT FOU 01/12/2015 [id number] / [id number] / Description:C5 Mtf Odl Spacer 8mm Angled Implanted:Qt y: 1 on 06/29/2012 by Dakota Vieira MD at [facility] Bone N/A: Spine Cervical Posterior MUSCULOSKELETAL TRANSPLANT FOU 06/30/2014 [id number] / [id number] / Description:C4 Plate Dbl Bend Mini Ti 8x20mm 443.178 - [id number] Implanted:Qt y: 6 on 06/29/2012 at [facility] Plate N/A: Spine Cervical Posterior SYNTHES-STRATEC- SPINAL 443.178 / / [id number] APR 13 Description:[id number] JUN 26 13 Screw Sanjeev Sd 2.0x8mm 401.138.99 - [id number] Implanted:Qt y: 12 on 06/29/2012 at [facility] Screw N/A: Spine Cervical Posterior SYNTHES-STRATEC- SPINAL 401.138.9 9 / / [id number] APR 13 Description:[id number] JUN 26 13 Screw Sanjeev Sd 2.0x6mm 401.136.99 - [id number] Implanted:Qt y: 13 on 06/29/2012 at [facility] Screw N/A: Spine Cervical Posterior SYNTHES-STRATEC- SPINAL 401.136.9 9 / / [id number] APR Description:[id number] JUN 26 13 Sealant Floseal W/ Adptr 10ml [id number] - [id number] Implanted:Qt y: 1 on 06/29/2012 by Dakota Vieira MD at [facility] Sealant N/A: Spine Cervical Posterior LUO- BIOSCIENCE 09/07/2013 [id number] / / [id number] Sealant Floseal W/ Adptr 10ml [id number] - [id number] Implanted:Qt y: 1 on 06/29/2012 by Dakota Vieira MD at [facility] Sealant N/A: Spine Cervical Posterior LUO- BIOSCIENCE 09/07/2013 [id number] / / [id number] Spacer Odl Parallel 6ml [id number] - [id number] Implanted:Qt y: 1 on 06/29/2012 by Dakota Vieira MD at [facility] Spine N/A: Spine Cervical Posterior MUSCULOSKELETAL TRANSPLANT FOU 04/29/2015 [id number] / [id number] / Description:C3 Insurance MEDICARE PART A AND B [place] [id number] [place] Advance Directives For more information, please contact: [phone] Documents on File Type Date Recorded Patient Ethnographer Expl anation Advance Directive POA 06/29/2012 5:53 AM A dvance Directive POA * Full Code (Latest Code Status on File) Date Activated Date Inactivated Comments 06/29/2012 5:39 AM 06/30/2012 3:24 PM Care Teams Silvering Applicator Relationship Specialty Start Date End Date [facility], External Provider [address] [place] [address] PCP - General 06/19/12
--- OUTSIDE RECORDS SUMMARY | 2024-09-27 08:03 | XMS_ITS | Referral Summary ---
Author Organization [facility] Address [address] [place] [address] Care Team Providers Care Buildings And Grounds Superintendent Name Role Phone Lg Urban DO Primary Care Provider [phone] Allergies Active Allergy Reactions Criticality Noted Date Comments Adhesive Other (See comments) Low 06/29/2012 Skin peels off Adhesive Tape-Silicones Unknown 04/10/2009 Blisters Amoxicillin-Pot Clavulanate Hives,Rash High 03/27/2017 Reaction: Hives, Morphine Vomiting Low Opioids - Morphine Analogues Nausea only,Vomiting Reaction: Nausea, Vomiting, Penicillins Hives,Rash Medium Medications aspirin 81 mg tablet take 1 Tablet (81MG) by oral route every day 0 06/30/2012 Active carvedilol (COREG) 12.5 mg tablet 2 times daily. Active metformin HCl (METFORMIN ORAL) 500 mg 2 times daily Active magnesium sulfate 100 mg capsule Take 250 mg by mouth Active atorvastatin (LIPITOR) 10 mg tablet Take 1 tablet (10 mg total) by mouth daily Active cyanocobalamin (Vitamin B-12) 1,000 mcg tabletIndicatio ns:Prevention of Vitamin B12 Deficiency Take 1 tablet (1,000 mcg total) by mouth daily Active gabapentin (NEURONTIN) 300 mg capsule Take 1 capsule (300 mg total) by mouth 3 (three) times a day Active empagliflozin (JARDIANCE) 25 mg tablet Take 0.5 tablets (12.5 mg total) by mouth daily 05/07/2022 Active naproxen (ALEVE) 220 mg tablet Take 1 tablet (220 mg total) by mouth 2 (two) times a day with meals Active losartan (COZAAR) 25 mg tablet Take 1 tablet (25 mg total) by mouth daily 10/18/2023 Active albuterol HFA (PROVENTIL HFA,VENTOLIN HFA,PROAIR HFA) 90 mcg/actuation inhaler Inhale 2 puffs every 6 (six) hours as needed for wheezing Active Active Problems Problem Noted Date Diagnosed Date Coronary artery disease invo lving [place] coronary artery of [place] heart without angina pectoris 03/27/2017 History of coronary artery stent placement 03/27 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 11/02/2016 Chronic pain 08/03/2016 Nicotine dependence 07/18/2016 Type 2 diabetes mellitus 06/24/2016 Hypertension 06/24/2016 Myocardial infarction 06/24/2016 Overview (06/19/2017): Description: 2006 Chronic coronary artery disease 06/24/2016 Diabetic neuropathy 06/24/2016 Neuropathy 06/24/2016 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 06/24/2016 Postlaminectomy syndrome of lumbar region 2016 Lumbago 06/24/2016 Postlaminectomy syndrome of cervical region 06/08 Immunizations Immunization Administration Dates Next Due Influenza, Trivalent, High D ose, Split, Preservative Free, Intramuscular 12/03/2018,12/16/2017,12/15/2017,12/11,12/11/2015,12/13/2014 ZOSTER Recombinant 12/03/2018 Social History Tobacco Use Types Packs/Day Years Used Date Smoking Tobacco: Every Day Cigarettes Smokeless Tobacco: Never Tobacco Cessation:Ready to Q uit: Not Asked; Counseling Given: Not Answered Personal Safety Answer Date Recorded Getting School Help Needed Not on file 05/03 Sex and Gender Information Value Date Recorded Sex Assigned at Not on file Legal Sex Male 12:51 AM SEAMER ELASTIC BAND Gender Identity Not on file Sexual Orientation Not on file Last Filed Vital Signs Vital Sign Reading Time Taken Comments Blood Pressure 116/78 12/04/2023 9:46 AM CDT Pulse 70 12/04/2023 9:46 AM CDT Temperature - - Respiratory Rate - - Oxygen Saturation 96% 12/04/2023 9:46 AM CDT Inhaled Oxygen Concentration - - Weight 111.9 kg (246 lb 11.2 oz) 12/04/2023 9:46 AM CDT Height 185.4 cm (6' 1) 12/04/2023 9:46 AM CDT Body Mass Index 32.55 12/04/2023 9:46 AM CDT Plan of Treatment Not on file Procedures Procedure Name Priority Date/Time Associated Diagnosis Comments POCT LIPID PANEL Routine 12/03/2022 10:2 7 AM CDT Lipid screening HEMOGLOBIN A1C Routine Gen Lab 04/01/2017 11:08 AM SEAMER ELASTIC BAND from Last 3 Months or Most Recently Relevant to Health Maintenance Results * POCT lipid panel (12/03/2022 10:27 AM CDT) Cholesterol, POC 133 mg/dL HDL, POC 20 mg/dL Triglycerides, POC 361 mg/dL LDL Cholesterol POC 42 mg/dL Chol/HDL Ratio, POC 2.1 Non-HDL Cholesterol, POC 114 mg/dL Cholesterol Total, POC 133 mg/dL Capillary blood 12/03/2022 1 0:27 AM CDT Nael Denis MD POINT OF CARE TEST ORDER TANI Final Result * (ABNORMAL) Hemoglobin A1c (04/01/2017 11:08 AM SEAMER ELASTIC BAND) Hgb A1C, POC 8.3(H) 4.0 - 6.0 % [facility] Est Average Gluc POC 192 mg/dL [facility] Comment: The ADA recommends reporting an estimated Average Glucose (eAG) with all Hemoglobin A1c results using the equation derived from a study of 507 normal and diabetic adults. Minority populations were underrepresented and children were not included. (Diabetes Care 31:4195-5824, 2008). The eAG is not equivalent to a fasting glucose. Blood specimen (specimen) 04/01/2017 11:08 AM SEAMER ELASTIC BAND 04/01/2017 11:08 AM SEAMER ELASTIC BAND Narrative [facility] - 04/01/2017 11:25 AM SEAMER ELASTIC BAND us Nael Ramires MD LAB BLOOD ORDERABLES nal Result [facility] Department [place] [address] from Last 3 Months or Most Recently Relevant to Health Maintenance [facility] A[facility] S[address]IOR [place] [address] [place] [address] [facility] Address: [facility] [id number] [place] [address] [facility] [employer] Advance Directives For more information, please contact: [phone] Documents on File Type Date Recorded Patient Social Services Counselor Expl anation ADVANCE DIRECTIVE 04/22/2017 9:29 PM Care Teams Buildings And Grounds Superintendent Relationship Specialty Start Date End Date Lg Urban DO PCP - General 12/03/16
--- OUTSIDE RECORDS SUMMARY | 2024-09-27 08:03 | XMS_ITS | Encounter Summary ---
Author Organization [facility] Address [address] [place] [address] Care Team Providers Care Mounter Sousaphones Name Role Phone Unavailable Primary Care Provider Unavailabl e Encounter Details Date Type Department Care Team (Late st Contact Info) Description 02/05/2010 SS Outpatient Visit EXTERNAL NON-SS DEPT Scodary, López Condon MD [address] [place] [id number] Social History Tobacco Use Types Packs/Day Years Used Date Smoking Tobacco: Every Day Cigarettes 1 45 Alcohol Use Standard Drinks/Week Comments No 0 (1 standard drink = 0.6 oz pur e alcohol) Sex and Gender Information Value Date Recorded Sex Assigned at Not on file Legal Sex Male 6:58 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
--- OUTSIDE RECORDS SUMMARY | 2024-09-27 08:03 | XMS_ITS | Encounter Summary ---
Author Organization [facility] Address [address] [place] [address] Care Team Providers Care Quality Assurance Auditor Name Role Phone [facility], External Provider Primary Care Provider U maddieailgermania Encounter Details Date Type Department Care Team (Late st Contact Info) Description 05/08/[address] [facility] [address] [place] [id number] Gabriel Trotter MD NO ADDRESS ON FILE Social History Tobacco Use Types Packs/Day Years Used Date Smoking Tobacco: Never Assessed Sex and Gender Information Value Date Recorded Sex Assigned at Not on file Legal Sex Male 3:43 AM MAT MAN Gender Identity Not on file Sexual Orientation Not on file documented as of this encounter Plan of Treatment Not on file documented as of this encounter Visit Diagnoses Not on filedocumented in this encounter Care Teams Quality Assurance Auditor Relationship Specialty Start Date End Date Liz, External Provider [address] [place] [address] PCP - General 06/19/12 documented as of this encounter
--- OUTSIDE RECORDS SUMMARY | 2024-09-27 08:03 | XMS_ITS | Encounter Summary ---
Author Organization [facility] Address [address] [place] [address] Care Team Providers Care Continuing Education Specialist Name Role Phone [facility], External Provider Primary Care Provider U shelli Encounter Details Date Type Department Care Team (Late st Contact Info) Description 05/07/2006 Outpatient Historical [facility] Support Serv. ([facility]) [address] 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
--- OUTSIDE RECORDS SUMMARY | 2024-09-27 08:03 | XMS_ITS | Clinical Summary ---
Author Organization [facility] [employer] Address [address] [place] [address] Care Team Providers Care Track Dresser Name Role Phone Unavailable Primary Care Provider Unavailabl e Source Comments [facility],non-owned Affiliates and Associated Physician Practices is amultiple site organization consisting of ambulatory clinics and hospital sitesin [place], [place], [place] and [place]. This disclosure is being madepursuant to the Care Everywhere program and may not contain all information available regarding this patient. Last updated 17.[facility] [employer] Allergies Active Allergy Reactions Criticality Noted Date Comments Adhesive Sensitivity 04/10/2009 Blisters Medications * Be aware that medications may not be up to date on this document. Alwaysverify current medications with the patient. atorvastatin (LIPITOR) 10 MG tablet Take by mouth at bedtime. Active carvedilol (COREG) 12.5 MG tablet Take by mouth 2 times daily. Instructed to take AM of surgery Active lisinopril (PRINIVIL; ZESTRIL) 10 MG tablet Take by mouth daily with breakfast. Instructed to take AM of surgery Active MAGNESIUM SULFATE PO Take by mouth. Acti ve cyclobenzaprine (FLEXERIL) 10 MG tablet Take by mouth at bedtime. Active METFORMIN HCL PO Take 500 mg by mouth daily with breakfast. Active clopidogrel (PLAVIX) 75 MG tablet Take 1 Tab by mouth daily with breakfast. MAY RESUME ON 04/23 0 0 0 Active hydrocodone-jyoti taminophen (NORCO) 5-325 MG tablet Take 1-2 Tabs by mouth every 4 hours as needed for Pain. 0 0 0 Active aspirin EC (ECOTRIN) 81 MG tablet Take 81 mg by mouth daily. Active oxyCODONE CR 12hr (OXYCONTIN) 20 MG tablet Take 20 mg by mouth every 12 hours. 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 Gender Identity Not on file Sexual Orientation Not on file Occupation Industry Job Start Date Job End Date Retired Not on file Not on file Not on file Last Filed Vital Signs Vital Sign Reading Time Taken Comments Blood Pressure 117/73 01/29/2012 1:51 PM INDUSTRIAL EDUCATION TEACHER Pulse 65 01/29/2012 1:51 PM INDUSTRIAL EDUCATION TEACHER Temperature 36.3 C (97.4 F) 01/29/2012 9:40 AM INDUSTRIAL EDUCATION TEACHER Respiratory Rate 16 01/29/2012 1:20 PM INDUSTRIAL EDUCATION TEACHER Oxygen Saturation 96% 01/29/2012 1:51 PM INDUSTRIAL EDUCATION TEACHER Inhaled Oxygen Concentration - - Weight 124.7 kg (275 lb) 01/29/2012 9:40 AM INDUSTRIAL EDUCATION TEACHER Height 185.4 cm (6' 1) 01/29/2012 9:40 AM INDUSTRIAL EDUCATION TEACHER Body Mass Index 36.28 01/29/2012 9:40 AM INDUSTRIAL EDUCATION TEACHER Plan of Treatment Health Maintenance Due Date Last Done Comments HEPATITIS C SCREENING 04/25/1963 DTAP/TDAP/TD VACCINES (1 - Tdap) 1966 PNEUMOCOCCAL VACCINE 50+ (1 of 1 - PCV) 1997 ZOSTER VACCINE (1 of 2) 1997 Respiratory Syncytial Virus (RSV) Vaccine Pt: or over 60 yrs (1 - 1-dose 75+ series) 2022 COVID-19 VACCINE ( - 2023-2 5 season) 2023 DEPRESSION SCREENING 03/10/2024 INFLUENZA VACCINE (#1) 2024 HEPATITIS B VACCINE Aged Out No longe r eligible based on patient's age to complete this topic HIB VACCINE Aged Out No longer eligi ble based on patient's age to complete this topic HPV VACCINE Aged Out No longer eligi ble based on patient's age to complete this topic MENINGOCOCCAL (Group B) VACC INE SHARED DECISION-MAKING Aged Out No longer eligibl e based on patient's age to complete this topic MENINGOCOCCAL GROUPS A/C/Y/W VACCINE Aged Out No longer eligible b ased on patient's age to complete this topic Insurance MEDICARE [facility] MEDICARE Advance Directives Documents on File Type Date Recorded 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
--- OUTSIDE RECORDS SUMMARY | 2024-09-27 08:03 | XMS_ITS | Clinical Summary ---
Author Organization [facility] Address [address] [place] [address] Care Team Providers Care Devulcanizer Tender Name Role Phone Lg Urban DO Primary Care Provider [phone] Allergies Active Allergy Reactions Criticality Noted Date [...] Diagnosed Date Coronary artery disease invo lving sitka coronary artery of sitka heart without angina pectoris 03/27/2017 History of [...] Preservative Free, Intramuscular 12/03/2018,12/16/2017,12/15/2017,12/11,12/11/2015,12/13/2014 ZOSTER Recombinant 12/03/2018 Surgical History Surgery Date Site/Laterality Comments NC ARTHRD ANT INTERBODY MIN DSC CRV BELOW C2 Cervical Vertebral Fusion - (Added by TW Conv) NC CHOLECYSTECTOMY Cholecystectomy - 1996 (Added by TW Conv) NC PRQ TRLUML CORONARY STENT W/ANGIO ONE ART/BRNCH Cath Placement Of Stent 1 - 2006 (Added by TW Conv) NC ARTHRD ANT INTERBODY MIN DSC LUMBAR Lumbar Vertebral Fusion - L4, L5, S1 fusion 1972 (Added by TW Conv) NC ENTRC RESCJ SMALL INTESTI NE 1 RESCJ & ANAST Small Bowel Resection - 2014 bowel resection, polyp (Added by TW Conv) NC NJX AA&/STRD TFRML EPI LUMBAR/SACRAL 1 LEVEL Corticosteroid Inj Transforaminal Approach Lumbar W/ Fluoroscopic Guidance - (Added by TW Conv) NERVE BLOCK Nerve Block Paravertebral Facet Joint - (Added by TW Conv) Medical History Medical History Date Comments Personal history of other en docrine, nutritional and metabolic disease History of hyperlipi demia - (Added by TW Conv) Presence of coronary angiopl asty implant and graft History of heart artery sten t - (Added by TW Conv) Personal history of thrombophlebitis History of deep vein thrombophlebitis of lower extremity - (Added by TW Conv) Personal history of other di seases of male genital organs H/O erectile dysfunction - ( Added by TW Conv) 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 Herniated disc - (Added by T W Conv) Personal history of other in fectious and parasitic diseases History of varicella - (Adde d by TW Conv) Personal history of other in fectious and parasitic diseases History of measles - (Added by TW Conv) Personal history of other in fectious and parasitic diseases History of mumps - (Added by TW Conv) Presence of other vascular i mplants and grafts Presence of vena cava filter - 2003 (Added by TW Conv) Type 2 diabetes mellitus wit hout complications (HCC) Type 2 diabetes mellitus - ( Added by TW Conv) Social History Tobacco Use Types Packs/Day Years Used Date Smoking Tobacco: Every Day Cigarettes Smokeless Tobacco: Never Tobacco Cessation:Ready to Q uit: Not Asked; Counseling Given: Not Answered Personal Safety Answer Date Recorded Getting School Help Needed Not on file 05/03 Sex and Gender Information Value Date Recorded Sex Assigned at Not on file 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 Gender Identity Not on file Sexual Orientation Not on file Obstetrics History Last Filed Vital Signs Vital Sign Reading [...] 12/04/2023 9:46 AM CDT Plan of Treatment Health Maintenance Due Date Last Done Comments Albumin Creatinine Ratio, Urine 1947 Depression Screening 1947 Fall Risk Assessment 1947 Hepatitis C Screening 1947 eGFR 1947 Dilated Eye Exam 1947 Foot Exam 1947 Hepatitis B Screening 1965 Abdominal Aortic Aneurysm (A AA) Screen 2012 Well Visit 65+ 2012 Hemoglobin A1C 09/29/2017 04/01/2017 Lipid Panel 12/04/2023 12/03/2022, 11/09, 11/23/2020, Additional history exists Influenza Vaccine (Season Ended) 2024 12/03/2022, 12/10/2021, 12/10/2020, Additional history exists DTaP/Tdap/Td Vaccine (2 - Td or Tdap) 05/02/2030 05/02/2020 Pneumococcal vaccine 65+ Completed 01/25/2016, 01/08 Zoster Vaccine Completed 02/08/2019, 11/09, 11/09/2018 Procedures Procedure Name Priority Date/Time Associated Diagnosis Comments POCT LIPID PANEL Routine 12/03/2022 10:2 7 AM CDT Lipid screening HEMOGLOBIN A1C Routine Gen Lab 04/01/2017 11:08 AM WATCH PARTS INSPECTOR from Last 3 Months or Most Recently Relevant to Health Maintenance Results * POCT lipid panel (12/03/2022 10:27 AM CDT) Cholesterol, POC 133 mg/dL HDL, POC 20 mg/dL Triglycerides, POC 361 mg/dL LDL Cholesterol POC 42 mg/dL Chol/HDL Ratio, POC 2.1 Non-HDL Cholesterol, POC 114 mg/dL Cholesterol Total, POC 133 mg/dL Capillary blood 12/03/2022 1 0:27 AM CDT us Nael Denis MD POINT OF CARE TEST ORDER TANI Final Result * (ABNORMAL) Hemoglobin A1c (04/01/2017 11:08 AM WATCH PARTS INSPECTOR) Hgb A1C, POC 8.3(H) 4.0 - 6.0 % [facility] Est Average Gluc POC 192 mg/dL [facility] Comment: The ADA recommends reporting an estimated Average Glucose (eAG) with all Hemoglobin A1c results using the equation derived from a study of 507 normal and diabetic adults. Minority populations were underrepresented and children were not included. (Diabetes Care 31:3272-8937, 2008). The eAG is not equivalent to a fasting glucose. Blood specimen (specimen) 04/01/2017 11:08 AM WATCH PARTS INSPECTOR 04/01/2017 11:08 AM WATCH PARTS INSPECTOR Narrative [facility] - 04/01/2017 11:25 AM WATCH PARTS INSPECTOR us Nael Ramires MD LAB BLOOD ORDERABLES nal Result [facility] Department [place] [address] from Last 3 Months or Most Recently Relevant to Health Maintenance Insurance [facility] MEDICARE TSOPHY SENIOR SUPPLEMENT [facility] GOLD REF [facility] ADVANTRA Advance Directives For more information, please contact: [phone] Documents on File Type Date Recorded 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
--- OUTSIDE RECORDS SUMMARY | 2024-09-27 08:03 | XMS_ITS | Clinical Summary ---
Author Organization [facility] Address [address] [place] [address] Care Team Providers Care Safety Sealer Name Role Phone AbimaelLg terrell Courtney BLAIR Primary Care Provider [phone] Nael Denis MD Unavailable [phone] Allergies Active Allergy Reactions Criticality Noted Date Comments Amoxicillin-Pot Clavulanate Rash High 03/27/2017 Reaction: Hives, Morphine Vomiting Low 06/20/2022 Tape Other (see comment) 04/10/2009 Blisters, skin tears Medications lisinopril (PRINIVIL) 10 MG tablet Take 1 tablet (10 mg total) by mouth daily. Active metFORMIN (GLUCOPHAGE) 1000 MG tablet Take 1 tablet (1,000 mg total) by mouth 2 (two) times daily. Active carvedilol (COREG) 12.5 MG tablet Take 1 tablet (12.5 mg total) by mouth 2 (two) times daily. Active atorvastatin (LIPITOR) 10 MG tablet Take 1 tablet (10 mg total) by mouth daily. Active empagliflozin (JARDIANCE) 25 MG tablet Take 0.5 tablets (12.5 mg total) by mouth daily. Active vitamin B-12 (CYANOCOBALAMIN ) 1000 MCG tablet Take 1 tablet (1,000 mcg total) by mouth daily. Active Magnesium Oxide 140 MG Cap Take 140 mg by mouth daily. Active gabapentin (NEURONTIN) 300 MG capsule Take 1 capsule (300 mg total) by mouth nightly. Active lidocaine (LIDODERM) 5 % Place 1 patch onto the skin daily. Remove & Discard patch within 12 hours or as directed by Active HYDROcodone-jyoti taminophen (NORCO) 5-325 MG tabletIndicatio ns:Acute Pain < 7 Day Supply Take 1-2 tablets by mouth every 4 (four) hours as needed for Pain. Indications: Acute Pain < 7 Day Supply 45 tablet 06/27/2022 Active Family History Medical History Relation Comments Hypertension Mother Relation Status Comments Daughter Alive Father Mother Sister Social History Tobacco Use Types Packs/Day Years Used Date Smoking Tobacco: Every Day Cigarettes 1 50 Smokeless Tobacco: Former Tobacco Cessation:Ready to Q uit: Not Asked; Counseling Given: Not Answered Alcohol Use Standard Drinks/Week Comments Never 0 (1 standard drink = 0.6 oz pur e alcohol) Sex and Gender Information Value Date Recorded Sex Assigned at Not on file Legal Sex Male 4:58 PM CDT Gender Identity Not on file Sexual Orientation Not on file Last Filed Vital Signs Vital Sign Reading Time Taken Comments Blood Pressure 163/97 06/27/2022 4:45 PM CDT Pulse 63 06/27/2022 4:45 PM CDT Temperature 36.4 C (97.5 F) 06/27/2022 4:45 PM CDT Respiratory Rate 16 06/27/2022 4:45 PM CDT Oxygen Saturation 98% 06/27/2022 4:45 PM CDT Inhaled Oxygen Concentration - - Weight 110.8 kg (244 lb 4.3 oz) 023 10:00 AM CDT Height 185.4 cm (6' 1) 06/20/2022 9:00 AM CDT Body Mass Index 32.23 06/20/2022 9:00 AM CDT Plan of Treatment Health Maintenance Due Date Last Done Comments Hepatitis C 1965 DTaP, Tdap and Td Vaccines (1 - Tdap) 1966 Pneumococcal Vaccine: 50+ Years (1 of 2 - PCV) 1966 Annual Medicare Wellness Visit 2012 RSV Immunization or 60+ Years (1 - 1-dose 75+ series) 2022 COVID-19 Vaccine ( season) 2023 01/09/2022, 08/30/2021, 01/12/2021, Additional history exists Zoster Vaccines Completed 02/08/2019, 12/03/2018 Meningococcal B Vaccine Aged Out No l onger eligible based on patient's age to complete this topic Meningococcal Vaccine Aged Out No maciel ruel eligible based on patient's age to complete this topic RSV Immunizations Under 20 Months Aged Out No longer eligible based on patient's age to complete this topic Medical Devices Implanted Type Area Horse Buyer Device Identifier Shelf Expiration Date Model / Serial / Lot Penta 3mm Lead, 60cm Implanted:Qty: 1 on 06/27/2022 by Barber Ross MD at [facility] N/A: Back [employer] [id number] 02/27/2024 [id number] / [id number] / Richard [employer] [place] Implanted:Qty: 1 on 06/27/2022 by Barber Ross MD at [facility] N/A: Back [employer] 02/13/2024 [id number] / / [id number] Insurance [employer] Advance Directives Documents on File Type Date Recorded 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
--- OUTSIDE RECORDS SUMMARY | 2024-09-27 08:03 | XMS_ITS | Encounter Summary ---
Author Organization [employer] Address 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 Nael Denis MD [address] [place] [address] Subendo Infrc, Init Episd ([facility]) (Primary Dx) Social History Tobacco Use Types Packs/Day Years Used Date Smoking Tobacco: Never Assessed Sex and Gender Information Value Date Recorded Sex Assigned at Not on file Legal Sex Male 3:43 AM POLICY CHECKER Gender Identity Not on file Sexual Orientation Not on file documented as of this encounter Plan of Treatment Not on file documented as of this encounter Procedures Procedure Name Priority Date/Time Associated Diagnosis Comments POC GLUCOSE Routine 05/11/2006 11:11 AM POLICY CHECKER POC GLUCOSE Routine 05/11/2006 7:30 AM POLICY CHECKER POC GLUCOSE Routine 05/10/2006 8:23 PM POLICY CHECKER POC GLUCOSE Routine 05/10/2006 4:31 PM POLICY CHECKER POC GLUCOSE Routine 05/10/2006 11:55 AM POLICY CHECKER POC GLUCOSE Routine 05/10/2006 7:48 AM POLICY CHECKER POC GLUCOSE Routine 05/09/2006 9:05 PM POLICY CHECKER POC GLUCOSE Routine 05/09/2006 8:56 PM POLICY CHECKER POC GLUCOSE Routine 05/09/2006 5:13 PM POLICY CHECKER POC GLUCOSE Routine 05/09/2006 11:40 AM POLICY CHECKER POC GLUCOSE Routine 05/09/2006 7:52 AM POLICY CHECKER CBC WITH DIFFERENTIAL Routine 05/09/2006 5:40 AM POLICY CHECKER CBC WITH DIFFERENTIAL Routine 05/09/2006 5:40 AM POLICY CHECKER CBC WITH DIFFERENTIAL Routine 05/09/2006 5:40 AM POLICY CHECKER PHOSPHORUS Routine 05/09/2006 5:40 AM POLICY CHECKER MAGNESIUM LEVEL Routine 05/09/2006 5:40 AM POLICY CHECKER BASIC METABOLIC PANEL Routine 05/09/2006 5:40 AM POLICY CHECKER POC GLUCOSE Routine 05/08/2006 8:55 PM POLICY CHECKER POC GLUCOSE Routine 05/08/2006 4:57 PM POLICY CHECKER CBC WITH DIFFERENTIAL Routine 05/08/2006 3:30 PM POLICY CHECKER CBC WITH DIFFERENTIAL Routine 05/08/2006 3:30 PM POLICY CHECKER CK TOTAL, RELATIVE INDEX Routine 05/08/2006 2:30 PM POLICY CHECKER CKMB W/REFLEX CK Routine 05/08/2006 2:30 PM POLICY CHECKER TROPONIN (W/REFLEX CKMB/CK) Routine 05/08/2006 2:30 PM POLICY CHECKER POC GLUCOSE Routine 05/08/2006 12:19 PM POLICY CHECKER CK TOTAL, RELATIVE INDEX Routine 05/08/2006 3:25 AM POLICY CHECKER CBC WITH DIFFERENTIAL Routine 05/08/2006 3:25 AM POLICY CHECKER CBC WITH DIFFERENTIAL Routine 05/08/2006 3:25 AM POLICY CHECKER documented in this encounter Results * (ABNORMAL) POC GLUCOSE (05/11/2006 11:11 AM POLICY CHECKER) GLUCOSE POC 131(H) 65 - 99 mg/dL INTERFACE SYSTEM 05/11/2006 11:1 1 AM POLICY CHECKER us Nael Denis MD POINT OF CARE TESTING Josesito ana Performing Organization Address [facility] Phone Number INTERFACE SYSTEM Refer to clinic/hospital department * (ABNORMAL) POC GLUCOSE (05/11/2006 7:30 AM POLICY CHECKER) GLUCOSE POC 118(H) 65 - 99 mg/dL INTERFACE SYSTEM 05/11/2006 7:30 AM POLICY CHECKER us Nael Denis MD POINT OF CARE TESTING Josesitovaleria perez Performing Organization Address [facility] Phone Number INTERFACE SYSTEM Refer to clinic/hospital department * (ABNORMAL) POC GLUCOSE (05/10/2006 8:23 PM POLICY CHECKER) GLUCOSE POC 150(H) 65 - 99 mg/dL INTERFACE SYSTEM 05/10/2006 8:23 PM POLICY CHECKER us Nael Denis MD POINT OF CARE TESTING Josesito ana Performing Organization Address [facility] Phone Number INTERFACE SYSTEM Refer to clinic/hospital department * POC GLUCOSE (05/10/2006 4:31 PM POLICY CHECKER) GLUCOSE POC 84 65 - 99 mg/dL INTERFACE SYSTEM 05/10/2006 4:31 PM POLICY CHECKER us Nael Denis MD POINT OF CARE TESTING Josesito ana Performing Organization Address [facility]/ZIP Co de Phone Number INTERFACE SYSTEM Refer to clinic/hospital department * POC GLUCOSE (05/10/2006 11:55 AM POLICY CHECKER) GLUCOSE POC 95 65 - 99 mg/dL INTERFACE SYSTEM 05/10/2006 11:5 5 AM POLICY CHECKER Nael Denis MD POINT OF CARE TESTING Josesito ana Performing Organization Address [facility] Phone Number INTERFACE SYSTEM Refer to clinic/hospital department * (ABNORMAL) POC GLUCOSE (05/10/2006 7:48 AM POLICY CHECKER) GLUCOSE POC 110(H) 65 - 99 mg/dL INTERFACE SYSTEM 05/10/2006 7:48 AM POLICY CHECKER Nael Denis MD POINT OF CARE TESTING Josesito ana Performing Organization Address [facility] Phone Number INTERFACE SYSTEM Refer to clinic/hospital department * POC GLUCOSE (05/09/2006 9:05 PM POLICY CHECKER) GLUCOSE POC 84 65 - 99 mg/dL INTERFACE SYSTEM COMMENT 4, GLU POC Rptd gluc at no charge INTERFACE SYSTEM 05/09/2006 9:05 PM POLICY CHECKER Nael Denis MD POINT OF CARE TESTING Josesito ana Performing Organization Address [facility] Phone Number INTERFACE SYSTEM Refer to clinic/hospital department * (ABNORMAL) POC GLUCOSE (05/09/2006 8:56 PM POLICY CHECKER) COMMENT, GLU POC Repeated Test INTERFACE SYSTEM GLUCOSE POC 61(L) 65 - 99 mg/dL INTERFACE SYSTEM 05/09/2006 8:56 PM POLICY CHECKER Nael Denis MD POINT OF CARE TESTING Josesito ana Performing Organization Address [facility] Phone Number INTERFACE SYSTEM Refer to clinic/hospital department * (ABNORMAL) POC GLUCOSE (05/09/2006 5:13 PM POLICY CHECKER) GLUCOSE POC 120(H) 65 - 99 mg/dL INTERFACE SYSTEM 05/09/2006 5:13 PM POLICY CHECKER Nael Denis MD POINT OF CARE TESTING Josesito ana Performing Organization Address [facility] de Phone Number INTERFACE SYSTEM Refer to clinic/hospital department * (ABNORMAL) POC GLUCOSE (05/09/2006 11:40 AM POLICY CHECKER) GLUCOSE POC 114(H) 65 - 99 mg/dL INTERFACE SYSTEM 05/09/2006 11:4 0 AM POLICY CHECKER Nael Denis MD POINT OF CARE TESTING Josesito ana Performing Organization Address [facility] Phone Number INTERFACE SYSTEM Refer to clinic/hospital department * (ABNORMAL) POC GLUCOSE (05/09/2006 7:52 AM POLICY CHECKER) GLUCOSE POC 113(H) 65 - 99 mg/dL INTERFACE SYSTEM 05/09/2006 7:52 AM POLICY CHECKER Nael Denis MD POINT OF CARE TESTING Josesitovaleria perez Performing Organization Address [facility] Phone Number INTERFACE SYSTEM Refer to clinic/hospital department * CBC WITH DIFFERENTIAL (05/09/2006 5:40 AM POLICY CHECKER) NEUTROPHIL ABSOLUTE 5.13 1.90 - 7.00 K/uL INTERFACE SYSTEM LYMPHOCYTE ABSOLUTE 3.13 0.70 - 4.50 K/uL INTERFACE SYSTEM MONOCYTE ABSOLUTE 0.35 0.10 - 1.30 K/uL INTERFACE SYSTEM EOSINOPHIL ABSOLUTE 0.09 0.00 - 0.70 K/uL INTERFACE SYSTEM BASOPHILS ABSOLUTE 0.00 0.00 - 0.20 K/uL INTERFACE SYSTEM NEUTROPHILS, SEG 59 45 - 70 % INTERFACE SYSTEM LYMPHOCYTES 36 16 - 45 % INTERFAC E SYSTEM MONOCYTES 4 3 - 13 % INTERFACE SYSTEM EOSINOPHILS 1 0 - 7 % INTERFAC E SYSTEM BASOPHILS 0 0 - 2 % INTERFACE SYSTEM PLATELET EST. Consistent w/ count Normal INTERFACE SYSTEM RBC MORPHOLOGY Normal Normal INTER FACE SYSTEM 05/09/2006 5:40 AM POLICY CHECKER Result [facility] Pablo Marino MD HEMATOLOGY ORDERABLES Edited Performing Organization Address [facility] de Phone Number INTERFACE SYSTEM Refer to clinic/hospital department * CBC WITH DIFFERENTIAL (05/09/2006 5:40 AM POLICY CHECKER) NRBC 0 <=0 /100 WBC INTERFACE SYSTEM 05/09/2006 5:40 AM POLICY CHECKER Result [facility] Pablo Marino MD HEMATOLOGY ORDERABLES Edited Performing Organization Address [facility] de Phone Number INTERFACE SYSTEM Refer to clinic/hospital department * (ABNORMAL) CBC WITH DIFFERENTIAL (05/09/2006 5:40 AM POLICY CHECKER) WBC 8.7 4.0 - 9.8 K/uL INTERFACE SYSTEM RBC 5.16 4.50 - 5.40 M/uL INTERFACE SYSTEM HEMOGLOBIN 15.3 13.6 - 16.5 g/dL INTERFACE SYSTEM HEMATOCRIT 43.0 40.0 - 48.0 % INTERFACE SYSTEM MCV 83.3 82.0 - 99.0 fL INTERFACE SYSTEM MCH 29.7 27.2 - 32.6 pg INTERFACE SYSTEM MCHC 35.6(H) 31.5 - 35.5 % INTERFACE SYSTEM RDW 13.7 11.5 - 14.5 % INTERFACE SYSTEM RDW-STDEV 41.5 37.1 - 48.7 fL INTERFACE SYSTEM PLATELETS 201 140 - 350 K/uL INTERFACE SYSTEM MPV 10.3 9.3 - 12.4 fL INTERFACE SYSTEM 05/09/2006 5:40 AM POLICY CHECKER Result [facility] Pablo Marino MD HEMATOLOGY ORDERABLES Edited Performing Organization Address [facility] de Phone Number INTERFACE SYSTEM Refer to clinic/hospital department * PHOSPHORUS (05/09/2006 5:40 AM POLICY CHECKER) PHOSPHORUS 3.4 2.5 - 4.5 mg/dL INTERFACE SYSTEM 05/09/2006 5:40 AM POLICY CHECKER Result [facility] us Pablo Marino MD CHEMISTRY ORDERABLES Edited Performing Organization Address [facility] de Phone Number INTERFACE SYSTEM Refer to clinic/hospital department * (ABNORMAL) MAGNESIUM LEVEL (05/09/2006 5:40 AM POLICY CHECKER) MAGNESIUM 2.6(H) 1.5 - 2.5 mg/dL INTERFACE SYSTEM 05/09/2006 5:40 AM POLICY CHECKER Pablo Marino MD CHEMISTRY ORDERABLES Edited Performing Organization Address [facility] Phone Number INTERFACE SYSTEM Refer to clinic/hospital department * (ABNORMAL) BASIC METABOLIC PANEL (05/09/2006 5:40 AM POLICY CHECKER) GLUCOSE 111(H) 65 - 99 mg/dL INTERFACE SYSTEM CREATININE 1.07 0.67 - 1.17 mg/dL INTERFACE SYSTEM CALCIUM 8.3(L) 8.4 - 10.2 mg/dL INTERFACE SYSTEM BUN 16 6 - 20 mg/dL INTERFACE SYSTEM SODIUM 136 135 - 145 mmol/L INTERFACE SYSTEM POTASSIUM 3.8 3.5 - 4.9 mmol/L INTERFACE SYSTEM CHLORIDE 101 96 - 108 mmol/L INTERFACE SYSTEM CO2 30 22 - 30 mmol/L INTERFACE SYSTEM GFR, >60 >=60 mL/min/1. 7 sq meter INTERFACE SYSTEM GFR >60 >=60 mL/min/1. 7 sq meter INTERFACE SYSTEM Comment: Estimated GFR rate interpretative information for both Americans and non- Americans is available on the [facility] Intranet at: [email or web address] Select: Lab Policies and Procedures Select: Reference Ranges - GFR 05/09/2006 5:40 AM POLICY CHECKER Pablo Marino MD CHEMISTRY ORDERABLES Edited Performing Organization Address [facility] Phone Number INTERFACE SYSTEM Refer to clinic/hospital department * POC GLUCOSE (05/08/2006 8:55 PM POLICY CHECKER) GLUCOSE POC 95 65 - 99 mg/dL INTERFACE SYSTEM 05/08/2006 8:55 PM POLICY CHECKER Nael Denis MD POINT OF CARE TESTING Josesito ana Performing Organization Address [facility] de Phone Number INTERFACE SYSTEM Refer to clinic/hospital department * (ABNORMAL) POC GLUCOSE (05/08/2006 4:57 PM POLICY CHECKER) GLUCOSE POC 108(H) 65 - 99 mg/dL INTERFACE SYSTEM 05/08/2006 4:57 PM POLICY CHECKER Nael Denis MD POINT OF CARE TESTING Josesito ana Performing Organization Address [facility] de Phone Number INTERFACE SYSTEM Refer to clinic/hospital department * CBC WITH DIFFERENTIAL (05/08/2006 3:30 PM POLICY CHECKER) NEUTROPHILS 70 45 - 70 % INTERFAC E SYSTEM LYMPHOCYTES 19 16 - 45 % INTERFAC E SYSTEM MONOCYTES 11 3 - 13 % INTERFACE SYSTEM EOSINOPHILS 1 0 - 7 % INTERFAC E SYSTEM BASOPHILS 0 0 - 2 % INTERFACE SYSTEM NEUTROPHIL ABSOLUTE 6.00 1.90 - 7.00 K/uL INTERFACE SYSTEM LYMPHOCYTE ABSOLUTE 1.60 0.70 - 4.50 K/uL INTERFACE SYSTEM MONOCYTE ABSOLUTE 0.91 0.10 - 1.30 K/uL INTERFACE SYSTEM EOSINOPHIL ABSOLUTE 0.07 0.00 - 0.70 K/uL INTERFACE SYSTEM BASOPHILS ABSOLUTE 0.02 0.00 - 0.20 K/uL INTERFACE SYSTEM 05/08/2006 3:30 PM POLICY CHECKER Dinora Cotton HEMATOLOGY ORDERABLES Edited Performing Organization Address [facility] de Phone Number INTERFACE SYSTEM Refer to clinic/hospital department * (ABNORMAL) CBC WITH DIFFERENTIAL (05/08/2006 3:30 PM POLICY CHECKER) WBC 8.6 4.0 - 9.8 K/uL INTERFACE SYSTEM RBC 5.62(H) 4.50 - 5.40 M/uL INTERFACE SYSTEM HEMOGLOBIN 16.5 13.6 - 16.5 g/dL INTERFACE SYSTEM HEMATOCRIT 46.7 40.0 - 48.0 % INTERFACE SYSTEM MCV 83.1 82.0 - 99.0 fL INTERFACE SYSTEM MCH 29.4 27.2 - 32.6 pg INTERFACE SYSTEM MCHC 35.3 31.5 - 35.5 % INTERFACE SYSTEM RDW 13.8 11.5 - 14.5 % INTERFACE SYSTEM RDW-STDEV 41.9 37.1 - 48.7 fL INTERFACE SYSTEM PLATELETS 229 140 - 350 K/uL INTERFACE SYSTEM MPV 9.8 9.3 - 12.4 fL INTERFACE SYSTEM 05/08/2006 3:30 PM POLICY CHECKER [employer] HEMATOLOGY ORDERABLES Edited Performing Organization Address [facility] Phone Number INTERFACE SYSTEM Refer to clinic/hospital department * (ABNORMAL) CK TOTAL, RELATIVE INDEX (05/08/2006 2:30 PM POLICY CHECKER) CK 1,932(H) 10 - 170 U/L INTERFACE SYSTEM CARDIAC RELATIVE INDEX 4.9(H) <=4.0 INTERFACE SYSTEM 05/08/2006 2:30 PM POLICY CHECKER [employer] CHEMISTRY ORDERABLES Edited Performing Organization Address [facility] Phone Number INTERFACE SYSTEM Refer to clinic/hospital department * (ABNORMAL) CKMB W/REFLEX CK (05/08/2006 2:30 PM POLICY CHECKER) CKMB 94.6(AA) <=6.7 ng/mL INTERFACE SYSTEM Comment:Persistent abnormal result CKMB INTERP See Below INTERFAC E SYSTEM Comment:Elevated CKMB,Consis tent with Myocardial Injury 05/08/2006 2:30 PM POLICY CHECKER [employer] CHEMISTRY ORDERABLES Edited Performing Organization Address [facility] Phone Number INTERFACE SYSTEM Refer to clinic/hospital department * (ABNORMAL) TROPONIN (W/REFLEX CKMB/CK) (05/08/2006 2:30 PM POLICY CHECKER) TROPONIN T 3.19(AA) <=0.03 ng/mL INTERFACE SYSTEM Comment:Persistent abnormal result TROPONIN T INTERP See Below INTERFACE SYSTEM Comment:Elevated Troponin-T, Consistent with Myocardial Injury 05/08/2006 2:30 PM POLICY CHECKER Dinora Cotton CHEMISTRY ORDERABLES Edited Performing Organization Address [facility] Phone Number INTERFACE SYSTEM Refer to clinic/hospital department * (ABNORMAL) POC GLUCOSE (05/08/2006 12:19 PM POLICY CHECKER) GLUCOSE POC 126(H) 65 - 99 mg/dL INTERFACE SYSTEM 05/08/2006 12:1 9 PM POLICY CHECKER Nael Denis MD POINT OF CARE TESTING Josesito ana Performing Organization Address [facility] de Phone Number INTERFACE SYSTEM Refer to clinic/hospital department * CBC WITH DIFFERENTIAL (05/08/2006 3:25 AM POLICY CHECKER) NEUTROPHILS 68 45 - 70 % INTERFAC E SYSTEM LYMPHOCYTES 21 16 - 45 % INTERFAC E SYSTEM MONOCYTES 10 3 - 13 % INTERFACE SYSTEM EOSINOPHILS 1 0 - 7 % INTERFAC E SYSTEM BASOPHILS 0 0 - 2 % INTERFACE SYSTEM NEUTROPHIL ABSOLUTE 6.25 1.90 - 7.00 K/uL INTERFACE SYSTEM LYMPHOCYTE ABSOLUTE 1.95 0.70 - 4.50 K/uL INTERFACE SYSTEM MONOCYTE ABSOLUTE 0.88 0.10 - 1.30 K/uL INTERFACE SYSTEM EOSINOPHIL ABSOLUTE 0.08 0.00 - 0.70 K/uL INTERFACE SYSTEM BASOPHILS ABSOLUTE 0.02 0.00 - 0.20 K/uL INTERFACE SYSTEM 05/08/2006 3:25 AM POLICY CHECKER Yeni Giang HEMATOLOGY ORDERABLES Edited Performing Organization Address [facility] de Phone Number INTERFACE SYSTEM Refer to clinic/hospital department * (ABNORMAL) CBC WITH DIFFERENTIAL (05/08/2006 3:25 AM POLICY CHECKER) WBC 9.2 4.0 - 9.8 K/uL INTERFACE SYSTEM RBC 5.43(H) 4.50 - 5.40 M/uL INTERFACE SYSTEM HEMOGLOBIN 16.2 13.6 - 16.5 g/dL INTERFACE SYSTEM HEMATOCRIT 44.9 40.0 - 48.0 % INTERFACE SYSTEM MCV 82.7 82.0 - 99.0 fL INTERFACE SYSTEM MCH 29.8 27.2 - 32.6 pg INTERFACE SYSTEM MCHC 36.1(H) 31.5 - 35.5 % INTERFACE SYSTEM RDW 13.9 11.5 - 14.5 % INTERFACE SYSTEM RDW-STDEV 42.0 37.1 - 48.7 fL INTERFACE SYSTEM PLATELETS 191 140 - 350 K/uL INTERFACE SYSTEM MPV 9.9 9.3 - 12.4 fL INTERFACE SYSTEM 05/08/2006 3:25 AM POLICY CHECKER us Yeni Giang HEMATOLOGY ORDERABLES Edited Performing Organization Address [facility] Co de Phone Number INTERFACE SYSTEM Refer to clinic/hospital department * (ABNORMAL) CK TOTAL, RELATIVE INDEX (05/08/2006 3:25 AM POLICY CHECKER) CK 2,836(H) 10 - 170 U/L INTERFACE SYSTEM CARDIAC RELATIVE INDEX 6.1(H) <=4.0 INTERFACE SYSTEM 05/08/2006 3:25 AM POLICY CHECKER us Tania Mcmanus MD CHEMISTRY ORDERABLES Edited Performing Organization Address [facility] Co de Phone Number INTERFACE SYSTEM Refer to clinic/hospital department documented in this encounter Visit Diagnoses Diagnosis Acute myocardial infarction, subendocardial infarction, initial episode of care ([facility])- Primary Acute myocardial infarction, subendocardial infarction, initial episode of care documented in this encounter Care Teams Immigration Associate Relationship Specialty Start Date End Date [facility], External Provider [address] [place] [address] PCP - General 06/19/12 documented as of this encounter
--- OUTSIDE RECORDS SUMMARY | 2024-09-27 08:03 | XMS_ITS | Continuity of Care Document ---
Author Organization [facility] Address [address] [place] [address] Phone Care Team Providers Care Pipeline Operator Name Role Phone Mcfarlane OD, Teddy Unavailable Unavailable Advance Directives Directive Yes / No Effective Date File Name No Information Encounters Encounter Description Practice Location Reason(s) For Visit Diagnoses Date Provider Providers Copied on Encounter [facility], [address], [place], [place], [id number], [place] tel:[phone] [facility] Jeancarlos Arshad No Information Sep-0 5-200 2 Mcfarlane OD Teddy. [address] , [address], [place], [address], [place]. tel:[phone] Family History Family Member Type Diagnosis Age At Onset No Information Payers Payer name Insurance type Covered democrat ID Authoriza tion(s) No Information Social History Type Description Quantity Date Captured Comments Sex Male Smoking Status No Information Chief Complaint And Reason For Visit No Information Reason For Referral Reason For Referral No Information History Of Present Illness Encounter Date Complaint History Of Prese nt Illness No Information Functional Status Date Functional Assessmen t No Information Instructions Date Instruction Additional Infor mation No Information Assessments Type Assessment Date No Information Patient Care Teams Name Effective Dates (start - stop) Status Members No Information
--- OUTSIDE RECORDS SUMMARY | 2024-09-27 08:03 | XMS_ITS | Encounter Summary ---
Author Organization [facility] Address [address] [place] [address] Care Team Providers Care Fish Hatchery Man Name Role Phone Unavailable Primary Care Provider Unavailabl e Encounter Details Date Type Department Care Team (Late st Contact Info) Description 11/07/2011 [facility] Outpatient Visit [facility] Jamil, [place] [address] [place] [address] Social History Tobacco Use Types Packs/Day Years Used Date Smoking Tobacco: Every Day Cigarettes 1 45 Alcohol Use Standard Drinks/Week Comments No 0 (1 standard drink = 0.6 oz pur e alcohol) Sex and Gender Information Value Date Recorded Sex Assigned at Not on file Legal Sex Male 6:58 AM OFFICE MANAGER Gender Identity Not on file Sexual Orientation Not on file Occupation Industry Job Start Date Job End Date Retired Not on file Not on file Not on file documented as of this encounter Plan of Treatment Not on file documented as of this encounter Visit Diagnoses Not on filedocumented in this encounter
--- OUTSIDE RECORDS SUMMARY | 2024-09-27 08:03 | XMS_ITS | Encounter Summary ---
Author Organization [facility] Health Address [address] [place] [address] Care Team Providers Care Edgerman Name Role Phone Unavailable Primary Care Provider Unavailabl e Encounter Details Date Type Department Care Team (Late st Contact Info) Description 02/06/2012 [facility] Outpatient Visit [facility] [address] [place] [id number] López Kimball MD [address] [place] [phone] Social History Tobacco Use Types Packs/Day Years Used Date Smoking Tobacco: Every Day Cigarettes 1 45 Alcohol Use Standard Drinks/Week Comments No 0 (1 standard drink = 0.6 oz pur e alcohol) Sex and Gender Information Value Date Recorded Sex Assigned at Not on file Legal Sex Male 6:58 AM ORAL PATHOLOGIST Gender Identity Not on file Sexual Orientation Not on file Occupation Industry Job Start Date Job End Date Retired Not on file Not on file Not on file documented as of this encounter Plan of Treatment Not on file documented as of this encounter Visit Diagnoses Not on filedocumented in this encounter
--- OUTSIDE RECORDS SUMMARY | 2024-09-27 08:03 | XMS_ITS | Data Portability ---
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 Pain started on September 28. He woke up with pain in the knee and has had continued pain since that time. He states prior to this did not have symptoms in the knee. He has pain with almost all activities. Patient has quite a bit of limitations with his activities. He has had multiple back surgeries as well as a nerve stimulator placed earlier this year. He cannot walk more than about 200 ft before he starts to have a lot of symptoms in his back and he asked. . Stairs are uncomfortable in getting up from a chair is difficult times. He points to the medial and anterior aspect of the knee where he feels discomfort. He has been using a cane since the onset of his symptoms. His primary care doctor recommended that he take Tylenol and he is doing 1000 mg twice a day. He is also using Voltaren gel. When I asked him about anti inflammatory medications he states he has not been taking them. He has no history of intolerance. Patient had x-rays done from his primary care doctor which were weight-bearing x-rays. Medial and lateral compartments are well maintained. 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 Physical exam: 77-year-old male alert pleasant. He is 5 ft 11 245 lb. He is walking a mild limp and using a cane in the right hand. He has mild effusion in the left knee. He has 125 degree flexion contracture in both knees when he is supine. When I elevate the leg on the left his flexion contracture improves to about 15 . His hip flexes to 120 externally rotates to 30 internally rotates to 10 all without discomfort. Flexion of the knee is to 135 . There is no increased swelling in either lower extremity. Mild patellofemoral grind. Mild tenderness over the mid medial joint line. No lateral line tenderness. 2+ posterior artery pulse. he has a very prominent tibial tubercle on the left from previous Arleth Schlatter. After ChloraPrep was used on skin 20 mg Kenalog and 3 cc of 0.5% ropivacaine was injected into the left knee the risk of infection discussed. Impression: 77-year-old male who has rather severe patellofemoral osteoarthritis left knee. He also has rather severe flexion contractures in both of his knees which is most likely due to his previous back surgeries. He walks stooped forward because of his back surgery which is going to be contributing to the flexion contractures in the knees. We did talk about formal physical therapy and obviously there was a concern that this could aggravate his back but could help improve a little bit with his overall posture and with his extension. He declined it at this point. With regard to anti-inflammatori es I would like him to call his primary care doctor and discuss whether not it would be reasonable for him to take any. I do not know if he has some medical history that precludes him from taking these are not and would like primary care doctor to give his opinion. We talked about cortisone injection. Patient has had these in his right knee in the past even like to have 1 today and I think that would be very reasonable. He does have some pain over the medial joint line and has relatively normal looking medial compartment on the weight-bearing x-rays there is always a possibility of meniscal pathology and understands that as well. He has had a knee scope in the right knee in the past. I think the injection is a reasonable option to start with patient wished to proceed. We will see him in a month for re-evaluation. If he is doing very well in he can call and cancel. He can repeat cortisone injections as often as every 3 months. 30 minutes was spent in treatment patient more than half of this in [id number] conversation [email or web address] Not available 10/16/2022 10:27:38 03/26/2023 03/26/2023 HPI: Patient returns. His left knee is bothering him again. Last time I saw was in October of last year. He had a cortisone injection. He has moderately severe patellofemoral osteoarthritis in the knee. About 3 weeks ago he aggravated the knee. Not sure what he did but this is when the pain started. He has been resting quite a bit his last 3 weeks and the knee has been improving but is still not back to his baseline symptoms. He wished to have another injection. The injection October work very well for him. Physical exam: 77-year-old male alert pleasant. He is walking with a cane today. He has about 20 degree flexion contracture in the knee. [id number] effusion. Flexes 120 . He has no increased swelling in either lower extremity. No redness or warmth to the knee. After ChloraPrep was used on skin 20 mg Kenalog and 3 cc of 0.5% ropivacaine was injected into the left knee. Impression: 77-year-old male who has moderately severe patellofemoral osteoarthritis of left knee. Shots are working well for him from time to time. He will call when he feels he needs additional injection is needed. [email or web address] Not available 03/26/2023 14:37:03 Plan of Treatment Reminders Order Date Submit Date Provider Last Modified By Organization Details Last Modified Time Details Appointments None recorded. Lab None recorded. Referral None recorded. Procedures injection/a spiration joint/bursa (PROC) - in office procedure, administere d by provider 2023 024 [email or web address] In-Office Order, Internal Use Only DO Not Attach Compendium DO Not Attach Compendium, Do Not Delete/merge, [id number] 14:20:27 injection/a spiration joint/bursa (PROC) - in office procedure, administere d by provider 2022 023 [email or web address] In-Office Order, Internal Use Only DO Not Attach Compendium DO Not Attach Compendium, Do Not Delete/merge, [id number] 10:15:41 Surgeries None recorded. Imaging None recorded. Medication Orders Kenalog 10 mg/mL suspension for injection 2023 024 [email or web address] [facility] #[id number], [address] [place], [address], 4 14:37:26 ropivacaine (PF) 5 mg/mL (0.5 %) injection solution 2023 024 [email or web address] [facility]acy #[id number], [address] [place], [address], 4 14:37:26 Kenalog 10 mg/mL suspension for injection 2022 023 [email or web address] [facility]acy #[id number], [address] [place], [address], 3 14:31:39 ropivacaine (PF) 5 mg/mL (0.5 %) injection solution 2022 023 [email or web address] [facility] #[id number], [address] [place], [address], 3 14:31:39 Patient TargetsNo targets recorded. Patient InstructionsNo instructions recorded. Reason for Referral None Reported. Problems Name Problem SNOMED Code Status Onset Date Resolution Date Notes Provider Name and Address Organization Details Recorded Time Pain of left knee joint 740925129705323 Active 2022 DANNA Augustine [place] - [facility] 3 09:54:53 Problem Notes None recorded. Procedures Surgical History Date Name Laterality Status Provider Name and Address Organization Details Recorded Time Eye Surgery completed DANNA Augustine [employer] 10/16/2022 09:52:13 Back Surgery completed DANNA Augustine [employer] [facility] 10/16/2022 09:52:19 procedure on gallbladder completed DANNA Augustine [employer] [facility] 10/16/2022 09:52:29 Shoulder completed DANNA Augustine [employer] [facility] 10/16/2022 09:52:40 Knee Surgery completed DANNA Augustine [place] [employer] [facility] 10/16/2022 09:53:08 Carpal tunnel surgery completed DANNA Augustine [facility] 10/16/2022 09:53:16 Neck Surgeries completed DANNA Wilson [facility] 10/16/2022 09:53:23 operation on intestine completed DANNA Augustine [facility] 10/16/2022 09:53:36 Imaging Results None recorded. Procedure Notes None recorded. Medical Equipment None Reported. Allergies Allergen ID Allergen Name Allergen Category Reaction Reaction Severity Criticality Documentation Date Start Date Code Code System Note Provider Name and Address Organization Details Recorded Time 52205 amoxicill in medicatio n Not available Not available Not available 10/16/2022 723 RxNorm DANNA Augustine [place] [employer] [facility] 09:49:43 Medications Name Sig Start Date Stop Date Status Note LastModified by Organization Details LastModified Time metformin 500 mg tablet TAKE 1 TABLET BY MOUTH TWICE A DAY active Not Available Not Available No t Available carvedilol 12.5 mg tablet TAKE 1 TABLET BY MOUTH TWICE A DAY active Not Available Not Available No t Available atorvastati n 10 mg tablet TAKE 1 TABLET BY MOUTH EVERY DAY active Not Available Not Available No t Available hydrocodone 5 mg-acetamin ophen 325 mg tablet TAKE 1 TO 2 TABLETS BY MOUTH EVERY 4 HOURS NEEDED FOR PAIN 10/16 completed Not Available Not Available Not Available doxycycline monohydrate 100 mg tablet TAKE 1 TABLET BY MOUTH TWICE A DAY FOR 10 DAYS 10/16 completed Not Available Not Available Not Available Kenalog 10 mg/mL suspension for injection in office 2023 active [facility]: [phone] [phone] Not Available Not Available Not Available hydrocodone 7.5 mg-acetamin ophen 325 mg tablet TAKE 1 TABLET BY MOUTH THREE TIMES A DAY NEEDED 10/16 completed Not Available Not Available Not Available lisinopril 10 mg tablet TAKE 1 TABLET BY MOUTH EVERY DAY active Not Available Not Available No t Available losartan 25 mg tablet 25 MG ORALLY DAILY active Not Available Not Available No t Available albuterol sulfate HFA 90 mcg/actuati on aerosol inhaler 2 INHALED EVERY 6 HOURS NEEDED FOR SHORTNESS OF BREATH OR WHEEZING/ COUGH active Not Available Not Available No t Available magnesium active Not Available Not Mita ilable Not Available aspirin active Not Available Not Avail able Not Available gabapentin active Not Available Not Av ailable Not Available Vitamin B12 active Not Available Not A vailable Not Available sodium,pota ssium,mag sulfates 17.5 gram-3.13 gram-1.6 gram oral soln TAKE DIRECTED BY YOUR PHYSICIAN active Not Available Not Available No t Available ropivacaine (PF) 5 mg/mL (0.5 %) injection solution in office 2023 active Not Available Not Available Not Avai lable empaglifloz in active Not Available Not Available Not Available Vitals Date Recorded Body height Provider Name an d Address Organization Details Last Updated DateTime 03/26/2023 180.34 cm Mara Beyer [facility] [employer] [facility] 03/26/2023 14:18:58 Date Recorded Body height Body mass index (BMI) Body weight Provider Name and Address Organization Details Last Updated DateTime 10/16/2022 180.34 cm 34.2 kg/m2 748088.13 g Mara Beyer [employer] 10/16/2022 09:57:54 Social History None recorded. Functional Status Question Answer Note LastModified by Organization D etails LastModified Time What is your level of alcohol consumption? None [email or web address] Information not available 10/16/2022 Mental Status None recorded. Family History Relationship Description Onset Age of this Age Resolved Age Notes LastModified by Organization Details LastModified Time Father Heart disease [email or web address] Not available 2022 09:51:34 Mother Hypertensive disorder Not available 2022 09:51:46 Medical History Condition Response DIABETES, TYPE Y BLOOD CLOTS Y HYPERTENSION Y Past Encounters Encounter ID Performer Location Encounter Start Date Encounter Closed Date Diagnosis/Indication Diagnosis SNOMED-CT Code Diagnosis ICD10 Code Diagnosis Note [id number] Jason Silva MD [facility] [address] [place] [address] 10/16/2022 09:25:10 10/16/2022 10:35:24 Pain of left knee joint [id number] 98660 M25.588 [id number] Jason Silva MD [facility] [place] [address] [facility] [address] [place] [address] 03/26/2023 14:15:25 03/26/2023 14:49:21 Pain of left knee joint [id number] 82020 M25.562 Health Concerns Section Related Observation LastModified by Organization Detai ls LastModified Time None Recorded Concern Status LastModified by Organization Details LastModified Time None Recorded Advance Directives Directive None Recorded Payers Insurance Date Sequence Insurance Name Policy Number Policy Duenas Covered Member ID Duenas Member ID Guarantor Name 04/02/2023 1 [employer] (MEDICARE REPLACEMENT/ ADVANTAGE - PPO) [id number] Abdullahi Prado [id number] Abdullahi Prado
[2024-09-27 13:40] LABS: Hematocrit 50.6 % (42.0-52.0); Hemoglobin 16.5 g/dL (14.0-18.0); Immature Granulocyte Percent A 0.7 % (0-0.5); Lymphocytes Absolute Auto 1.70 K/mm3 (0.9-3.2); Mean Corpuscular HGB Conc 32.6 g/dl (32-36); Mean Corpuscular Hemoglobin 28.3 pg (26-34); Mean Corpuscular Volume 86.8 fl (80-100); Nucleated Red Blood Cells Absolute Auto 0.000 K/mm3 (0.0-0.012); Nucleated Red Blood Cells Perc 0.0 % (0.0-0.2); Platelet Count Result 184 k/mm3 (150-375); Red Blood Count 5.83 M/mm3 (4.6-6.20); White Blood Count 6.8 K/mm3 (4.5-10.0)
[2024-09-27 13:50] LABS: Alanine Aminotransferase 45 U/L (6-50); Albumin Level 4.3 g/dL (3.5-5.1); Alkaline Phosphatase 80 U/L (38-126); Anion Gap 12 mmol/L (4-12); Aspartate Amino Transferase 50 U/L (17-59); Bilirubin,Total 1.6 mg/dL (0.2-1.3); Blood Urea Nitrogen 17 mg/dL (9-20); Calcium 9.2 mg/dL (8.4-10.2); Carbon Dioxide 23 mmol/L (22-30); Chloride 104 mmol/L (98-107); Cholesterol 142 mg/dL (0-200); Estimated Glomerular Filt Rate > 60; Glucose 147 mg/dL (65-110); HDL Direct 36 mg/dL; Potassium 4.0 mmol/L (3.4-5.0); Sodium 139 mmol/L (137-145); Total Protein 7.4 g/dL (6.3-8.2); Triglycerides 295 mg/dL (<150)
[2024-09-27 14:47] LABS: MALB Creatinine Ratio 9.0 mg/g (0-30)
[2024-09-27 16:21] LABS: Hemoglobin A1C 8.2 % (<5.7)
== END 2024-09-27 08:01 | disposition home or self-care (01) ==
LOC: ANHGOSHLAB 08:01
PROVIDERS: PCP Internal Medicine; Visit Provider Internal Medicine
DX: E11.40 Type 2 diabetes mellitus with diabetic neuropathy, unspecified (principal); I25.10 Atherosclerotic heart disease of native coronary artery without angina pectoris; I10 Essential (primary) hypertension
CPT/HCPCS: 36415; 80053; 80061; 82043; 83036; 85025